=== PATIENT | female | born 2000 | race Caucasian/White ===

== ENCOUNTER 2019-07-06 14:19 | Emergency (ER) | payer OTHER, SELFPAY ==
[2019-07-06 14:37] VITALS: BP 117/55; PULSE 76; RESP 18; TEMP 36.4; O2SAT 100
[2019-07-06 15:52] LABS: Add Urine Microscopic? YES; Appearance Urine Clear (Clear); Bacteria Urine Trace /hpf; Bilirubin Urine Negative (Negative); Blood Urine Negative (Negative); Color Urine Yellow (Yellow); Glucose Urine UA Negative (Negative); Ketones Urine Trace mg/dL (Negative); Leukocyte Esterase Ur Trace LEU/UL (Negative); Mucus Urine Rare /lpf; Nitrate Urine Positive (Negative); Protein Urine Negative (Negative); RBC Urine 0-2 /hpf (0-2); Specific Grav Ur 1.019 (1.001-1.035); Squamous Epithelial Cell Urine Occasional /hpf (Few)
--- NOTE | 2019-07-06 16:09 | ED.FEMALEGU ---
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 Patient is currently [address] Kendrick patient was seen yesterday and had outpatient ultrasound. Patient notes she has had some mild cramping in the which Dr. Vazquez is aware of patient denies any vomiting diarrhea does note she has had some white discharge and states that her sexual partner may have a STD currently which is led her to seek testing patient otherwise on arrival is resting comfortably in the room in no distress <Dieter Alva PA-C - Last Filed: 07/06/19 16:14> Related Data Allergies/Adverse reactions: Allergies Allergy/AdvReac Type Severity Reaction Status Date / Time No Known Allergies Allergy Verified 07/06/19 15:35 <Dieter Alav PA-C - Last Filed: 07/06/19 16:14> Review of Systems Review of Systems: All systems reviewed & are unremarkable except as noted in HPI and below <Dieter Alva PA-C - Last Filed: 07/06/19 16:14> PMFSH Social History Social History: Social History (Updated 07/06/19 @ 16:12 by Dieter Alva PA-C) Smoking status: Never smoker Gender identity (if verbalized by the patient): Female <Dieter Alva PA-C - Last Filed: 07/06/19 16:14> Exam Narrative: Exam Narrative: GENERAL: Well-appearing, well-nourished, and in no acute distress. HEAD: Normocephalic, atraumatic. EYES: PERRLA and EOMI. ENT: Nares clear, no rhinorrhea or epistaxis. Mucous membranes moist. CHEST: Clear to auscultation. No respiratory distress. No wheezes rales or rhonchi HEART: Regular rate and rhythm. No murmur heard. EXTREMITIES: Normal range of motion. No edema. FEMALE GENITOURINARY: White discharge in the vaginal vault SKIN: Warm, dry, no rash. NEURO: No focal deficits. Alert and oriented x3. Cranial nerves II through XII grossly intact PSYCH: Normal mood and affect. <Dieter Alva PA-C - Last Filed: 07/06/19 16:14> Course Course Emergency Course: Patient in the room tested and treated for STDs will follow with gynecology on Tuesday as planned <Dieter Alva PA-C - Last Filed: 07/06/19 16:14> Vital Signs Vital signs: Vital Signs Temperature 36.4 C L 07/06/19 14:37 Pulse Rate 76 07/06/19 14:37 Respiratory Rate 18 07/06/19 14:37 Blood Pressure 117/55 L 07/06/19 14:37 Pulse Oximetry 100 07/06/19 14:37 Temperature 36.4 C L 07/06/19 14:37 Pulse Rate 76 07/06/19 14:37 Respiratory Rate 18 07/06/19 14:37 Blood Pressure 117/55 L 07/06/19 14:37 Pulse Oximetry 100 07/06/19 14:37 <Dieter Alva PA-C - Last Filed: 07/06/19 16:14> Vital Signs Temperature 36.4 C L 07/06/19 14:37 Pulse Rate 76 07/06/19 14:37 Respiratory Rate 18 07/06/19 14:37 Blood Pressure 117/55 L 07/06/19 14:37 Pulse Oximetry 100 07/06/19 14:37 Temperature 36.4 C L 07/06/19 14:37 Pulse Rate 76 07/06/19 14:37 Respiratory Rate 18 07/06/19 14:37 Blood Pressure 117/55 L 07/06/19 14:37 Pulse Oximetry 100 07/06/19 14:37 <Ernesto Smith MD - Last Filed: 09/12/19 04:32> MDM - Female Genitourinary MDM Narrative Medical decision making narrative: Patient in the room in no distress aware of case findings treatment plan and diagnosis agreeing to follow-up as directed or to return if
[2019-07-06] MEDS: metroNIDAZOLE 250 MG TABLET 2000 MG PO (16:25)
[2019-07-06] MEDS: AZITHROMYCIN 250 MG TABLET 1000 MG PO (16:26)
[2019-07-06] MEDS: cefTRIAXone 250 MG VIAL IM (16:27)
[2019-07-06] MEDS: LIDOCAINE HCL 1% LOCAL INJ 20 ML VIAL (16:27)
== END 2019-07-06 16:39 | disposition home or self-care (01) ==
PROVIDERS: Emergency Medicine Emergency Medical Services; Emergency Provider Emergency Medicine
DX: O23.22 Infections of urethra in pregnancy, second trimester (principal); Z3A.23 23 weeks gestation of pregnancy
CPT/HCPCS: 81001; 87070; 87086; 87088; 87491; 87591; 87808; 96372; 99284; A9270; J0696

== ENCOUNTER 2019-10-16 12:40 | Inpatient (IN) | payer OTHER, SELFPAY ==
[2019-10-16] VITALS (99 sets, daily range): BP systolic 84–138; BP diastolic 55–102; PULSE 68–139; TEMP 36.6–37.2; O2SAT 98–100; BMI 25.1
[2019-10-16 13:28] LABS: Basophils Absolute Auto 0.1 K/mm3 (0.0-0.1); Basophils Percent Auto 0.4 % (0.2-1.2); Eosinophils Percent Auto 0.3 % (0-4.4); Hematocrit 32.2 % (37.0-47.0); Hemoglobin 10.4 g/dL (12.0-15.0); Immature Granulocyte Absolute 0.15 K/mm3 (0.00-0.031); Lymphocytes Absolute Auto 1.43 K/mm3 (0.9-3.2); Lymphocytes Percent Auto 9.8 % (18.3-44.2); Mean Corpuscular HGB Conc 32.3 g/dl (32-36); Mean Corpuscular Hemoglobin 23.6 pg (26-34); Mean Corpuscular Volume 73.2 fl (80-100); Mean Platelet Volume 11.6 fl (7.4-10.4); Monocytes Absolute Auto 0.8 K/mm3 (0.1-0.6); Monocytes Percent Auto 5.5 % (2.6-8.5); Neutrophils Absolute Auto 12.1 K/mm3 (1.3-6.7); Platelet Count Result 238 k/mm3 (150-375); White Blood Count 14.6 K/mm3 (4.5-10.0)
[2019-10-16] MEDS: LACTATED RINGERS 1,000 ML 125 ML IV CONT ×3 (13:28→21:40)
[2019-10-16] MEDS: AMPICILLIN 2 GM/NS 100 ML 2 GM/100 ML BAG IVPB (13:29)
[2019-10-16] MEDS: OXYTOCIN 30 UNITS/NS 500 ML 30 UNITS/500 ML BAG IV CONT (13:29)
--- NOTE | 2019-10-16 13:34 | LDADM ---
This patient, Topher Stapleton, was admitted to Labor/Delivery/Recovery 105 on 10/16/19 at 12:40. Plans for labor, pain management and were discussed with patient. Patient/family oriented to hospital policies and general routines including ID bracelet, bed and alarms, visiting hours, pain management, procedures, bathroom and other care routines, personal items, smoking policy, room service/diet and guest tray routines, infant security routines, and visiting hours. Patient/Family are encouraged to report perceived risks to care and to ask questions if they do not understand what they are told or what they should do. See OBIX for further documentation.
[2019-10-16 15:17] LABS: HIV 1/2 Ab P24 Ag Result Negative (Negative)
--- NOTE | 2019-10-16 16:56 | WPDANESEPP ---
Anes - Eval Pre Procedure Procedure: labor epidural Date/Time: 10/16/19 16:56 Surgeon: Aroldo Preop Diagnosis: Labor pain Pre Op Diagnosis: leaking Patient Data Age: 19 Gender: F Height: 1.65 m Weight: 68.5 kg Last Vital Signs Temp 36.8 C 10/16/19 15:00 Pulse 88 10/16/19 16:31 BP 122/74 10/16/19 16:31 Allergies Allergy/AdvReac Type Severity Reaction Status Date / Time No Known Allergies Allergy Verified 07/06/19 15:35 Home Medications Medication Instructions Recorded Confirmed Type PNV cmb#95-ferrous fumarate-FA 1 tablet PO DAILY 10/01/19 10/01/19 History [] Laboratory Tests 10/16/19 10/16/19 10/16/19 13:19 13:19 13:19 WBC 14.6 K/mm3 H K/mm3 (4.5-10.0) RBC 4.40 M/mm3 M/mm3 (4.2-5.4) Hgb 10.4 g/dL L g/dL (12.0-15.0) Hct 32.2 % L % (37.0-47.0) MCV 73.2 fl L fl (80-100) MCH 23.6 pg L pg (26-34) MCHC 32.3 g/dl g/dl (32-36) RDW 15.0 % H % (11.5-14.5) Plt Count 238 k/mm3 k/mm3 (150-375) MPV 11.6 fl H fl (7.4-10.4) Immature Gran % (Auto) 1.0 % H % (0-0.5) Neut % (Auto) 83.0 % H % (45.5-73.1) Lymph % (Auto) 9.8 % L % (18.3-44.2) [place] % (Auto) 5.5 % % (2.6-8.5) Eos % (Auto) 0.3 % % (0-4.4) Baso % (Auto) 0.4 % % (0.2-1.2) Lymph # (Auto) 1.43 K/mm3 K/mm3 (0.9-3.2) [place] # (Auto) 0.8 K/mm3 H K/mm3 (0.1-0.6) Eos # (Auto) 0.0 K/mm3 K/mm3 (0-0.3) Baso # (Auto) 0.1 K/mm3 K/mm3 (0.0-0.1) Abs Immat Gran (auto) 0.15 K/mm3 H K/mm3 (0.00-0.031) Absolute Neuts (auto) 12.1 K/mm3 H K/mm3 (1.3-6.7) Absolute Nucleated RBC 0.0 K/mm3 K/mm3 (0.0-0.012) Nucleated RBC % 0.0 % % (0.0-0.2) RPR Pending HIV 1&2 Ab/P24 Ag 4thGn Blood Type O Positive Antibody Screen Negative 10/16/19 14:16 WBC RBC Hgb Hct MCV MCH MCHC RDW Plt Count MPV Immature Gran % (Auto) Neut % (Auto) Lymph % (Auto) Sebastian % (Auto) Eos % (Auto) Baso % (Auto) Lymph # (Auto) Sebastian # (Auto) Eos # (Auto) Baso # (Auto) Abs Immat Gran (auto) Absolute Neuts (auto) Absolute Nucleated RBC Nucleated RBC % RPR HIV 1&2 Ab/P24 Ag 4thGn Negative (Negative) Blood Type Antibody Screen Patient hx anesthesia problems: none Family hx anesthesia problems: none [facility] Family History Family History (Updated 10/01/19 @ 15:43 by Yael Woodward RN) Mother Hypertension Thyroid disease Sibling Thyroid disease Social History Social History (Updated 07/06/19 @ 16:12 by Dieter Alva PA-C) Smoking status: Never smoker Second hand tobacco smoke exposure: No Substance use: never Gender identity (if verbalized by the patient): Female Spiritual care concerns: No Exam Day of Procedure 10/16/19 16:56 Patient weight: normal
[2019-10-16] MEDS: AMPICILLIN 1 GM/NS 50 ML 1 GM/50 ML BAG IVPB ×2 (17:33→21:06)
[2019-10-16] MEDS: SODIUM CHLORIDE 0.9% IV 300 ML 600 ML I-UTERINE (21:03)
[2019-10-16] MEDS: ONDANSETRON INJ 4 MG/2 ML VIAL IV PUSH (21:49)
--- NOTE | 2019-10-16 22:23 | P.HPUP_ITS ---
History and Physical Update Update Date/Time: 10/16/19 22:23 This patient is a 19 y/o multip at 37 weeks who pre sented for SROM. She has been ROM for more than 12 hours. History and Physical has been reviewed, including an updated exam of the patient. There are NO changes in the patient's condition. Risks, benefits, and alternatives have been discussed and questions answered. Patient agrees to proceed with procedure.
--- NOTE | 2019-10-16 22:27 | PM.OBPRVD ---
OB - Delivery Note Procedure Delivery date: 10/16/19 events: Prolonged Rupture of Membrane Intrapartal events: None Delivery augmentation: pitocin Delivery monitor: external FHT and internal uterine Route of delivery: Episiotomy description: None Laceration description: None Specimen: Yes Estimated blood loss (mL): 110 Anesthesia type: Epidural Disposition: floor Baby Date of : 10/16/19 Time of : 22:13 Weeks of gestation at delivery: 37 Weight (pounds): 5 Weight (ounces): 6 presentation: vertex position: Left Occiput Anterior Placenta delivery description: Spontaneous cord vessel description: 3 Vessels score one minute: 7 score five minutes: 8
[2019-10-16] MEDS: OXYTOCIN 30 UNITS/NS 500 ML 30 UNITS/500 ML BAG 125 UNITS IV CONT (22:55)
[2019-10-16] MEDS: WITCH HAZEL 40 PADS 1 PAD TOPICAL (23:51)
[2019-10-16] MEDS: BENZOCAINE 20% AER SPR (*SP) 56 GM CAN 1 SPRAY TOPICAL (23:51)
[2019-10-17 00:38] VITALS: BP 118/86; PULSE 69; RESP 16; TEMP 36.8; O2SAT 100
--- NOTE | 2019-10-17 00:38 | PC.NURSE ---
Patient was given the opportunity to view the discharge video Mother & Baby Care, The First Two Weeks and to ask questions. Patient declined viewing the video and has been given the mother/baby guide for home reference. Patient watched video 16 months ago with her last delivery.
--- NOTE | 2019-10-17 00:38 | OBPPTRN ---
Patient transferred to post room #287 via wheelchair. Support person present. Oriented to unit, room, information board, rooming in, admission packet and security measures. Patient verbalizes understanding. in level II nursery.
[2019-10-17 05:37] LABS: Hematocrit 29.2 % (37.0-47.0); Hemoglobin 9.4 g/dL (12.0-15.0)
[2019-10-17] MEDS: IBUPROFEN 600 MG TABLET PO ×2 (07:23→17:34)
[2019-10-17] MEDS: MULTIVIT/MIN/PREN/FOL AC/IRON TABLET 1 TAB PO (07:24)
[2019-10-17] MEDS: POLYSACCHARIDE IRON COMPLEX 150 MG CAPSULE PO ×2 (07:24→17:34)
[2019-10-17] MEDS: DOCUSATE SODIUM 100 MG CAPSULE PO ×2 (07:24→17:34)
[2019-10-17 07:30] VITALS: BP 103/65; PULSE 66; RESP 20; TEMP 37.3; O2SAT 100
[2019-10-17 07:36] LABS: Rapid Plasma Reagin Non-Reactive (NonReactive)
--- NOTE | 2019-10-17 08:05 | PM.OBPNVD ---
OB - PN: Subj Subjective Date/time seen: 10/17/19 08:05 OB - PN: Obj Data Labs CBC & Chem 7: 10/17/19 05:14 Labs: Laboratory Results - last 24 hr 10/16/19 10/16/19 10/16/19 13:19 13:19 13:19 WBC 14.6 H RBC 4.40 Hgb 10.4 L Hct 32.2 L MCV 73.2 L MCH 23.6 L MCHC 32.3 RDW 15.0 H Plt Count 238 MPV 11.6 H Immature Gran % (Auto) 1.0 H Neut % (Auto) 83.0 H Lymph % (Auto) 9.8 L [place] % (Auto) 5.5 Eos % (Auto) 0.3 Baso % (Auto) 0.4 Lymph # (Auto) 1.43 [place] # (Auto) 0.8 H Eos # (Auto) 0.0 Baso # (Auto) 0.1 Abs Immat Gran (auto) 0.15 H Absolute Neuts (auto) 12.1 H Absolute Nucleated RBC 0.0 Nucleated RBC % 0.0 RPR Non-reactive HIV 1&2 Ab/P24 Ag 4thGn Blood Type O Positive Antibody Screen Negative 10/16/19 10/17/19 14:16 05:14 WBC RBC Hgb 9.4 L Hct 29.2 L MCV MCH MCHC RDW Plt Count MPV Immature Gran % (Auto) Neut % (Auto) Lymph % (Auto) [place] % (Auto) Eos % (Auto) Baso % (Auto) Lymph # (Auto) [place] # (Auto) Eos # (Auto) Baso # (Auto) Abs Immat Gran (auto) Absolute Neuts (auto) Absolute Nucleated RBC Nucleated RBC % RPR HIV 1&2 Ab/P24 Ag 4thGn Negative Blood Type Antibody Screen OB - PN A/P Plan day: 1 Plan: routine care Time Spent With Patient Time: Total time spent is greater than 50% in coordination of care (as documented) at patient's floor/unit and/or counseling patient: Time with patient: less than 15 minutes Review of Systems Review of Systems: All systems reviewed & are unremarkable except as noted in HPI and below Exam Narrative: Exam Narrative: FUndus firm and vaginal flow controlled. Const: General: cooperative and healthy appearing Orientation/consciousness: oriented to person, oriented to place, oriented to time and patient oriented x3 Limitations: no limitations HENMT: Head: normal to inspection Ears: hearing grossly normal bilaterally General nose exam: Normal external nose present Face and sinus: normal facial exam Mouth: Yes Normal oral and palatal mucosa present Teeth and gingiva: dentition normal Throat: posterior oropharynx normal Eyes: General: appearance normal, both eyes and all related structures Neck: Neck: normal visual inspection Thyroid: thyroid normal Chest: Chest palpation & inspection: normal inspection of the chest Resp: Effort & Inspection: normal respiratory effort Auscultation: clear to auscultation bilaterally Cardio: Rate: regular rate Rhythm: regular rhythm GI: Inspection: normal to inspection : General: Yes bimanual renal exam normal bilaterally Skin: General skin exam: normal color and no rashes or lesions noted Neuro: General: oriented to person, oriented to place, oriented to time and patient oriented x3 Extrem: General: normal to inspection Psych: Mental Status: mental status grossly normal
--- NOTE | 2019-10-17 16:04 | PC.NURSE ---
Self care discharge instructions given including follow up instructions. Pt. verbalized understanding. No questions or concerns voiced.
[2019-10-17] MEDS: WITCH HAZEL 40 PADS 1 PAD TOPICAL (17:34)
[2019-10-17] MEDS: BENZOCAINE 20% AER SPR (*SP) 56 GM CAN 1 SPRAY TOPICAL (17:34)
--- NOTE | 2019-11-12 20:52 | PM.OBDSVD ---
DS: Admitting Diagnosis Admitting Diagnosis Admitting Diagnosis: Encounter for supervision of normal , unspecified, third trimester DS: Discharge Diagnosis Discharge Diagnosis (1) Term delivered: Code(s): O80 - Encounter for full-term uncomplicated delivery Status: Acute OB - DS: Summary OB Procedures : None OB Procedures Intrapartum: Spontaneous Vag Delivery OB Procedures: : None Peripartum Data Delivery Method: Natural Vaginal Time Spent with Patient Time attestation: Total time spent providing and/or coordinating discharge services: DS: Data Data Completed and Pending Completed studies during hospitalization: Pending at discharge 10/16/19 22:46 Surgical [PTH] Routine Discharge Plan Discharge Attending physician on discharge: Jennifer Kendrick Consulting providers: Destin Meng ; Theodore Alejandro ; Indu Tamez Discharging Clinician: Jennifer Kendrick Anticipated Discharge Date/Time: 10/17/19 16:30 Patient Disposition: Home, Self-Care Activity: may shower and pelvic rest Diet: heart healthy Discharge Instructions: Education: Mom and Baby Guide Given to: Mother Follow-Up: Call your delivering provider's office for an appointment to be seen in: 4 Weeks Mom and baby should come to the [facility] for the follow-up appointment. Appointment Date/Time: Saturday, October 19, 2019 at 11:00 am What to expect at your follow-up visit: Blood Pressure Check Physical Assessment Call [phone] if you are unable to keep your appointment time. BREAST CARE: 1. Wear a snug supportive bra. 2. For engorgement discomfort: Breast Feeding: A. Apply warm moist washcloths B. Express milk as needed to relieve engorgement C. Wear loose clothing 3. For sore nipples: A. Identify correct latch-on B. Apply warm moist washcloths before and after nursing C. Air dry nipples after nursing D. May apply Lansinoh cream to nipples EPISIOTOMY/PERINEAL CARE 1. Until bleeding stops, use your nahomy bottle after urinating 2. Change your pad frequently throughout the day 3. You may take sitz baths several times a day (fill your bathtub with warm water and soak for 20 minutes.) Do NOT bathe in the water 4. No tub baths until seen by your physician - You may shower ACTIVITY: 1. Rest as much as possible. 2. Do not exercise or lift anything heavier than your baby (such as laundry or other children.) 3. Avoid stairs or driving as much as possible. 4. Do not put anything into the vagina. No douching, tampons, or sexual activity until seen by physician. NOTIFY PHYSICIAN IF YOU HAVE ANY QUESTIONS OR IF ANY OF THE FOLLOWING SYMPTOMS OCCUR: 1. If your episiotomy or incision becomes red, swollen, or more painful than what you have experienced in the hospital. 2. If your vaginal bleeding becomes foul smelling. 3. If your vaginal bleeding becomes more heavy than a period or if your bleeding changes from pink to bright red. However, you may pass an occasional walnut-sized clot once or twice for the first week . 4. If you experience a sharp, shooting pain in you calves. 5. If you discover a hard, reddened area on your breast or if you experience flu-like symptoms. DIET: 1. Eat regular, well-balanced meals. 2. Drink plenty of fluids daily. If , drink to thirst. Patient Instructions: Antibiotic Form Stand Alone Forms: General Discharge Information Follow-up/Referrals: Jennifer Kendrick MD [Physician] - 4 Weeks Discharge Medications: Continued PNV cmb#95-ferrous fumarate-FA [] 28 mg iron- 800 mcg Tablet 1 tablet PO DAILY RF: 0 Date of admission: 10/16/19 12:40 Primary Care Provider: PHYSICIAN,CHANGE MANAGEMENT ADMINISTRATOR Admitting Provider: Jennifer Kendrick Discharge Date/Time: 10/17/19 17:46 Attending physician on admission: Jennifer Kendrick
== END 2019-10-17 17:46 | disposition home or self-care (01) | DRG 560 ==
LOC: ANHLDR 13:02 → ANHOB2 10-17 00:45
PROVIDERS: Admitting Provider Obstetrics & Gynecology; Visit Provider Obstetrics & Gynecology
DX: O42.92 Full-term premature rupture of membranes, unspecified as to length of time between rupture and onset of labor (principal); Z37.0 Single live birth; Z3A.37 37 weeks gestation of pregnancy; O36.8330 Maternal care for abnormalities of the fetal heart rate or rhythm, third trimester, not applicable or unspecified
CPT/HCPCS: 36415; 84112; 85014; 85018; 85025; 86592; 86703; 86850; 86900; 86901; 88307; A9270; G0432; J0290; J2405; J2590; J2795; J3010; J7030; J7120

== ENCOUNTER 2021-02-20 14:50 | Outpatient (CLI) | payer OTHER, SELFPAY | END 2021-02-20 15:40 | disposition home or self-care (01) | LOC: ANHOBOP 15:37 → ANHLDR 15:37 | PROVIDERS: Visit Provider Obstetrics & Gynecology | DX: O41.8X90 Other specified disorders of amniotic fluid and membranes, unspecified trimester, not applicable or unspecified (principal) | CPT/HCPCS: 59025; 84112; 99199 ==

== ENCOUNTER 2021-03-04 13:49 | Outpatient (RCR) | payer OTHER, SELFPAY ==
--- NOTE | ~2021-03-04 | US_ITS ---
EXAMINATION: US OB limited w BPP DATE: 03/04/2021 15:33 INDICATION: Decreased movement, third trimester TECHNIQUE: Real-time pelvic ultrasound was performed. The interpreting radiologist was not present fo r the study. COMPARISON: None. FINDINGS: There is a single living fetus in vertex presentation. The placenta is on the left. heart rate is 165 beats per minute (bpm). The amniotic fluid index is 13.3 cm which is normal. Biophysical profile performed by the technologist: breathing (30 sec sustained breathing in 30 minutes): 2 out of 2 movement (3 gross body movements in 30 minutes): 2 out of 2 tone (one episode of cmurmmy-bmrpxetbm-jtjjadq limb movement): 2 out of 2 Amniotic fluid pocket (2 cm): 2 out of 2 Total score: 8 out of 8 IMPRESSION: 1. Single living fetus in vertex presentation. 2. Biophysical profile 8 out of 8. 3. Normal amniotic fluid index. Reviewed, dictated and finalized at location A.
[2021-03-04 15:40] VITALS: BP 113/74; PULSE 78
== END 2021-03-30 09:42 | disposition home or self-care (01) ==
LOC: ANHOBOP 13:49
PROVIDERS: Visit Provider Obstetrics & Gynecology
DX: O36.8130 Decreased fetal movements, third trimester, not applicable or unspecified (principal); Z3A.37 37 weeks gestation of pregnancy
CPT/HCPCS: 59025; 76815; 76819

== ENCOUNTER 2021-03-13 03:23 | Inpatient (IN) | payer OTHER, SELFPAY ==
[2021-03-13] VITALS (155 sets, daily range): BP systolic 64–140; BP diastolic 31–103; PULSE 75–172; RESP 16; TEMP 36.4–36.8; O2SAT 92–100; BMI 22.6
--- OUTSIDE RECORDS SUMMARY | 2021-03-13 03:32 | XMS_ITS | Encounter Summary ---
:2000 Author Reason for Visit None recorded. Assessment and Plan 1. History of growth retar dation ? non-stress test Discussion Note: None recorded.Patient educational handouts: No information available. Plan of Care Reminders Provider Appointments Ob Routine Bert lfo Josr 03/16/2021 MD Aroldo 3:00PM ? Induction Vasile Josr 03/16/2021 MD Aroldo 6:00AM ? Ob Routine Donaldolf o Josr 03/23/2021 MD Aroldo 3:00PM Lab None ? ? recorded. Referral None ? ? recorded. Procedures None ? ? recorded. Surgeries None ? ? recorded. Imaging Non-stress [place] Test 03/09/2021 Medications Name Start Date ? ? fluconazole 150 mg tablet ? Take 1 tablet by oral route. Macrobid 100 mg capsule ? Take 1 capsule every 12 hours by oral route for 7 day s. + DHA ? Medications Administered None recorded. Vitals None recorded. Results Lab Results None recorded. Allergies Code Code System Name Reaction Severity Onset
--- OUTSIDE RECORDS SUMMARY | 2021-03-13 03:32 | XMS_ITS ---
:2000 Author Care Team Providers Name Role Phone AroldoDonaldVasilemalcolm Ovalles Primary Care Provider Unavailable Allergies Code Code System Name Reaction Severity Status Onset NKDA ? Medications Name Status Start Date Stop Date ? ? amoxicillin 875 mg tablet Completed ? 2019 fluconazole 150 mg tablet Active ? Not av ailable Macrobid 100 mg capsule Active ? Not avai lable Take 1 capsule every 12 hours by oral route for 7 days. + DHA Active ? Not available Prenate DHA 28 mg iron-1 mg-300 mg capsule Completed ? 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 Rubella Screening Status Unknown 12/12/2017 History Gestation Period, 11 Weeks Unknown 12/12/2017 Histo ry , Childbirth and Puerperium Unknown 12/12/2017 History Finding , Childbirth and Puerperium Unknown 01/06/2018 History Finding Screening Unknown 03/13/2018 History Normal in Multigravida Unknown 03/13/2018 History Gestation Period, 33 Weeks Unknown 05/18/2018 Histo ry Clinical Finding Unknown 05/18/2018 History -induced Edema and Unknown 06/01/2018 Hist ory Proteinuria without Hypertension Gestation Period, 35 Weeks Unknown 06/01/2018 Histo ry Gestation Period, 36 Weeks Unknown 06/09/2018 Histo ry Gestation Period, 37 Weeks Unknown 06/16/2018
--- OUTSIDE RECORDS SUMMARY | 2021-03-13 03:32 | XMS_ITS | Encounter Summary ---
:2000 Author Reason for Visit None recorded. Assessment and Plan 1. condition affecting obs tetrical care of mother ? US, obstetric, biophysical profile + non-stress test Discussion Note: None recorded.Patient educational handouts: No information available. Plan of Care Reminders Provider Appointments Ob Routine Bert lfo Josr 03/16/2021 MD Aroldo 3:00PM ? Induction Vasile Josr 03/16/2021 MD Aroldo 6:00AM ? Ob Routine Rodolf o Josr 03/23/2021 MD Aroldo 3:00PM Lab None recorded. ? ? Referral None recorded. ? ? Procedures None recorded. ? ? Surgeries None recorded. ? ? Imaging US, Obstetric, [facility] Biophysical Profile + 03/02/2021 Non-stress Test Medications Name Start Date ? ? fluconazole 150 mg tablet ? Take 1 tablet by oral route. Macrobid 100 mg capsule ? Take 1 capsule every 12 hours by oral route for 7 day s. + DHA ? Medications Administered None recorded. Vitals None recorded. Results Lab Results None recorded. Allergies Code Code System Name
--- OUTSIDE RECORDS SUMMARY | 2021-03-13 03:32 | XMS_ITS | Encounter Summary ---
:2000 Author Reason for Visit OB visit Assessment and Plan Assessment Note Patient is ___weeks . Discu ssed plan. 1. Routine care Discussion Note: None recorded.Patient educational handouts: No information available. Plan of Care Reminders Provider Appointments Ob Routine Bert lfo Josr 03/16/2021 MD Aroldo 3:00PM ? Induction Vasile Josr 03/16/2021 MD Aroldo 6:00AM ? Ob Routine Noemy Ovalles 03/23/2021 MD Aroldo 3:00PM Lab None ? ? recorded. Referral None ? ? recorded. Procedures None ? ? recorded. Surgeries None ? ? recorded. Imaging None ? ? recorded. Medications Name Start Date ? ? fluconazole 150 mg tablet ? Take 1 tablet by oral route. Macrobid 100 mg capsule ? Take 1 capsule every 12 hours by oral route for 7 day s. + DHA ? Medications Administered None recorded. Vitals Height Weight BMI Blood Pressure 5 ft 6 in 140 lbs 22.6 kg/m2 130/83 mm[Hg] Results Lab Results None recorded. All
--- OUTSIDE RECORDS SUMMARY | 2021-03-13 03:32 | XMS_ITS | Encounter Summary ---
:2000 Author Reason for Visit None recorded. Assessment and Plan 1. Anemia during - bab y not yet delivered ? US, obstetric, biophysical profile + non-stress [...] None recorded. ? ? Imaging US, Obstetric, [facility] Biophysical Profile + 03/09/2021 Non-stress Test Medications Name Start Date ? [...]
--- OUTSIDE RECORDS SUMMARY | 2021-03-13 03:32 | XMS_ITS | Encounter Summary ---
[...] ft 6 in 140 lbs 22.6 kg/m2 125/81 mm[Hg] Results Lab Results None recorded. All
--- OUTSIDE RECORDS SUMMARY | 2021-03-13 03:33 | XMS_ITS | Encounter Summary ---
:2000 Author Reason for Visit OB visit Assessment and Plan Assessment Note Patient is ___weeks . Discu ssed plan. 1. Routine care Discussion Note: None recorded.Patient educational handouts: No information available. Plan of Care Reminders Provider Appointments Ob Routine Ebrt lfo Josr 03/16/2021 MD Aroldo 3:00PM ? [...] BMI Blood Pressure 5 ft 6 in 141 lbs 22.8 kg/m2 125/72 mm[Hg] Results Lab Results None recorded. Ye
--- OUTSIDE RECORDS SUMMARY | 2021-03-13 03:33 | XMS_ITS | Encounter Summary ---
[...] ? recorded. Imaging Non-stress [place] Test 03/02/2021 Medications Name Start Date ? ? fluconazole [...]
--- OUTSIDE RECORDS SUMMARY | 2021-03-13 03:33 | XMS_ITS | Encounter Summary ---
[...] ft 6 in 141 lbs 22.8 kg/m2 118/73 mm[Hg] Results Lab Results None recorded. All
--- OUTSIDE RECORDS SUMMARY | 2021-03-13 03:33 | XMS_ITS | Encounter Summary ---
:2000 Author Reason for Visit None recorded. Assessment and Plan 1. Anemia of ? US, obstetric, biophysical profile + non-stress [...] None recorded. ? ? Imaging US, Obstetric, [facility] Biophysical Profile + 02/23/2021 Non-stress Test Medications Name Start Date ? [...]
--- OUTSIDE RECORDS SUMMARY | 2021-03-13 03:33 | XMS_ITS | Encounter Summary ---
:2000 Author Reason for Visit None recorded. Assessment and Plan 1. Medical examination for suspe cted condition ? US, obstetric, follow-up Discussion Note: None recorded.Patient educational handouts: No information available. Plan of Care Reminders Provider Appointments Ob Routine Bert lfo Josr 03/16/2021 MD Aroldo 3:00PM ? Induction Vasile Josr 03/16/2021 MD Aroldo 6:00AM ? Ob Routine Donaldolf o Josr 03/23/2021 MD Aroldo 3:00PM Lab None ? ? recorded. Referral None ? ? recorded. Procedures None ? ? recorded. Surgeries None ? ? recorded. Imaging , [place] [facility]st[facility], Follow-up 01/27/2021 Medications Name Start Date ? ? fluconazole [...]
--- OUTSIDE RECORDS SUMMARY | 2021-03-13 03:33 | XMS_ITS | Encounter Summary ---
[...] ? recorded. Imaging Non-stress [place] Test 02/02/2021 Medications Name Start Date ? ? fluconazole [...]
--- OUTSIDE RECORDS SUMMARY | 2021-03-13 03:33 | XMS_ITS | Encounter Summary ---
[...] ? recorded. Imaging Non-stress [place] Test 02/23/2021 Medications Name Start Date ? ? fluconazole [...]
--- OUTSIDE RECORDS SUMMARY | 2021-03-13 03:33 | XMS_ITS | Encounter Summary ---
:2000 Author Reason for Visit OB visit Assessment and Plan 1. Routine care ? drug screen, urine 2. Anemia of 3. History of growth retar dation 4. Marijuana user 5. Noncompliance with treatment Discussion Note: None recorded.Patient educational handouts: No information available. Plan of Care Reminders Provider Appointments Ob Routine Bert lfo Josr 03/16/2021 MD [place] 3:00PM ? Induction Vasile Ovalles 03/16/2021 MD [place] 6:00AM ? Ob Routine Rodolf o Josr 03/23/2021 MD [place] 3:00PM Lab Drug Screen, Francesca pablo Urine 02/09/2021 Referral None ? ? recorded. Procedures None [...]
--- OUTSIDE RECORDS SUMMARY | 2021-03-13 03:33 | XMS_ITS | Encounter Summary ---
[...] None recorded. ? ? Imaging US, Obstetric, [facility] Biophysical Profile + 02/16/2021 Non-stress Test Medications Name Start Date ? [...]
--- OUTSIDE RECORDS SUMMARY | 2021-03-13 03:33 | XMS_ITS | Encounter Summary ---
[...] BMI Blood Pressure 5 ft 6 in 146 lbs 23.6 kg/m2 115/77 mm[Hg] Results Lab Results None recorded. Al
--- OUTSIDE RECORDS SUMMARY | 2021-03-13 03:33 | XMS_ITS | Encounter Summary ---
:2000 Author Reason for Visit None recorded. Assessment and Plan 1. History of previous baby with growth restriction ? non-stress test Discussion Note: None recorded.Patient [...] ? recorded. Imaging Non-stress [place] Test 02/09/2021 Medications Name Start Date ? ? fluconazole [...]
--- OUTSIDE RECORDS SUMMARY | 2021-03-13 03:33 | XMS_ITS | Encounter Summary ---
:2000 Author Reason for Visit None recorded. Assessment and Plan None recorded.Discussion Note: None recorded.Patient educational handouts: No information available. Plan of Care Reminders Provider Appointments Ob Routine Bert lfo Josr 03/16/2021 MD [place] 3:00PM ? Induction Vasile Josr 03/16/2021 MD [place] 6:00AM ? Ob Routine Kleverf sharon Ovalles 03/23/2021 MD [place] 3:00PM Lab None [...] Code Code System Name Reaction Severity Onset NKDA ? ? ? Problems Name Status Onset Date Source ?
--- OUTSIDE RECORDS SUMMARY | 2021-03-13 03:33 | XMS_ITS | Encounter Summary ---
[...] ? recorded. Imaging Non-stress [place] Test 02/16/2021 Medications Name Start Date ? ? fluconazole [...]
--- OUTSIDE RECORDS SUMMARY | 2021-03-13 03:34 | XMS_ITS | Encounter Summary ---
:2000 Author Reason for Visit OB visit 30w4d Assessment and Plan 1. Routine care Discussion Note: None recorded.Patient [...] BMI Blood Pressure 5 ft 6 in 142 lbs 22.9 kg/m2 120/77 mm[Hg] Results Lab Results None recorded. Allergies Code Code System Name Reaction Severity Onset
[2021-03-13] MEDS: AMPICILLIN 2 GM/NS 100 ML 2 GM/100 ML BAG IVPB (04:06)
[2021-03-13] MEDS: LACTATED RINGERS 1,000 ML 125 ML IV CONT ×3 (04:07→13:32)
[2021-03-13 04:23] LABS: Basophils Percent Auto 0.3 % (0.2-1.2); Eosinophils Absolute Auto 0.1 K/mm3 (0-0.3); Eosinophils Percent Auto 0.4 % (0-4.4); Hematocrit 28.3 % (37.0-47.0); Hemoglobin 9.1 g/dL (12.0-15.0); Immature Granulocyte Absolute 0.18 K/mm3 (0.00-0.031); Immature Granulocyte Percent A 1.6 % (0-0.5); Lymphocytes Absolute Auto 1.19 K/mm3 (0.9-3.2); Lymphocytes Percent Auto 10.4 % (18.3-44.2); Mean Corpuscular HGB Conc 32.2 g/dl (32-36); Mean Corpuscular Hemoglobin 23.9 pg (26-34); Mean Corpuscular Volume 74.5 fl (80-100); Mean Platelet Volume 10.5 fl (7.4-10.4); Monocytes Absolute Auto 1.1 K/mm3 (0.1-0.6); Monocytes Percent Auto 9.1 % (2.6-8.5); Neutrophils Percent Auto 78.2 % (45.5-73.1); Nucleated Red Blood Cells Perc 0.2 % (0.0-0.2); Platelet Count Result 329 k/mm3 (150-375); Red Cell Distribution Width 13.9 % (11.5-14.5); White Blood Count 11.5 K/mm3 (4.5-10.0)
--- NOTE | 2021-03-13 05:12 | P.PNAN_ITS ---
Anes - Eval Pre Procedure Procedure: labor epidrual Date/Time: 03/13/21 05:12 Surgeon: jeanine Preop Diagnosis: pain during labor Pre Op Diagnosis: Leaking Patient Data Age: 20 Gender: F Height: 1.68 m Weight: 63.5 kg Last Vital Signs Pulse 89 03/13/21 04:00 BP 125/79 03/13/21 04:00 Allergies Allergy/AdvReac Type Severity Reaction Status Date / Time No Known Allergies Allergy Verified 03/09/21 12:17 Home Medications Medication Instructions Recorded Confirmed Type PNV cmb#95-ferrous fumarate-FA 1 tablet PO DAILY 10/01/19 03/09/21 History [] ferrous sulfate [Iron (ferrous 325 mg PO BID 02/20/21 03/09/21 History sulfate)] Laboratory Tests 03/13/21 03/13/21 04:04 04:04 WBC 11.5 K/mm3 H K/mm3 (4.5-10.0) RBC 3.80 M/mm3 L M/mm3 (4.2-5.4) Hgb 9.1 g/dL L g/dL (12.0-15.0) Hct 28.3 % L % (37.0-47.0) MCV 74.5 fl L fl (80-100) MCH 23.9 pg L pg (26-34) MCHC 32.2 g/dl g/dl (32-36) RDW 13.9 % % (11.5-14.5) Plt Count 329 k/mm3 k/mm3 (150-375) MPV 10.5 fl H fl (7.4-10.4) Immature Gran % (Auto) 1.6 % H % (0-0.5) Neut % (Auto) 78.2 % H % (45.5-73.1) Lymph % (Auto) 10.4 % L % (18.3-44.2) Imperial % (Auto) 9.1 % H % (2.6-8.5) Eos % (Auto) 0.4 % % (0-4.4) Baso % (Auto) 0.3 % % (0.2-1.2) Lymph # (Auto) 1.19 K/mm3 K/mm3 (0.9-3.2) Imperial # (Auto) 1.1 K/mm3 H K/mm3 (0.1-0.6) Eos # (Auto) 0.1 K/mm3 K/mm3 (0-0.3) Baso # (Auto) 0.0 K/mm3 K/mm3 (0.0-0.1) Abs Immat Gran (auto) 0.18 K/mm3 H K/mm3 (0.00-0.031) Absolute Neuts (auto) 9.0 K/mm3 H K/mm3 (1.3-6.7) Absolute Nucleated RBC 0.0 K/mm3 K/mm3 (0.0-0.012) Nucleated RBC % 0.2 % % (0.0-0.2) RPR Pending Patient hx anesthesia problems: none Family hx anesthesia problems: none Results Review: All pre-operative results and documents have been reviewed as part of the pre-operative evaluation. [facility] Family History Family History Mother Hypertension Thyroid disease Sibling Thyroid disease Social History Social History (Updated 07/06/19 @ 16:12 by Dieter Alva PA-C) Smoking status: Never smoker Second hand tobacco smoke exposure: No Substance use: never Gender identity (if verbalized by the patient): Female Spiritual care concerns: No Exam Day of Procedure 03/13/21 05:12
[2021-03-13 05:45] LABS: Amphetamine Screen Urine Negative (Negative); Barbiturate Screen Urine Negative (Negative); Benzodiazepines Screen Urine Negative (Negative); Cannabinoid Screen Urine Positive (Negative); Cocaine Screen Urine Negative (Negative); Methadone Screen Urine Negative (Negative); Opiate Screen Urine Negative (Negative); Phencyclidine Screen Urine Negative (Negative)
--- NOTE | 2021-03-13 07:34 | WPDOBADMIT ---
Obstetrics - Admit Note Admission Note: record reviewed. No pertinent additions to the history and/or any subsequent changes in the physical findings that are not consistent with the expected course of the were found. Arrived in labor, SROM, clear fluid, anticipate vaginal delivery Additions to the history and/or subsequent changes in the physical findings follow. None.
[2021-03-13] MEDS: AMPICILLIN 1 GM/NS 50 ML 1 GM/50 ML BAG IVPB ×4 (07:51→20:00)
[2021-03-13] MEDS: OXYTOCIN 30 UNITS/NS 500 ML 30 UNITS/500 ML BAG IV CONT (07:52)
[2021-03-13] MEDS: miSOPROStol 200 MCG TABLET 800 MCG (20:28)
--- NOTE | 2021-03-13 20:34 | PM.OBPRVD ---
OB - Delivery Note Procedure Delivery date: 03/13/21 Procedure: vaginal delivery Intrapartal events: None Induction method: none Delivery augmentation: pitocin Delivery monitor: external FHT, external uterine and internal uterine Route of delivery: Episiotomy description: None Laceration Description: None Specimen: No Quantitative Blood Loss (ml): 225 Anesthesia type: Epidural Disposition: floor Baby Date of : 03/13/21 Time of : 20:21 Weeks of gestation at delivery: 38 Infant gender: Female Weight (pounds): 7 Weight (ounces): 7 position: Left Occiput Anterior Placenta delivery description: Spontaneous cord vessel description: 3 Vessels, Clamped/Cut and Delayed Cord Clamping score one minute: 9 score five minutes: 9 Narrative: mother and baby skin to skin instable condition
[2021-03-13] MEDS: OXYTOCIN 30 UNITS/NS 500 ML 30 UNITS/500 ML BAG 125 UNITS IV CONT (21:03)
[2021-03-13] MEDS: ACETAMINOPHEN 325 MG TABLET 650 MG PO (22:44)
[2021-03-13] MEDS: WITCH HAZEL 40 PADS 1 PAD TOPICAL (22:45)
[2021-03-13] MEDS: BENZOCAINE 20% AER SPR (*SP) 56 GM CAN 1 SPRAY TOPICAL (22:45)
[2021-03-13] MEDS: IBUPROFEN 600 MG TABLET PO (23:20)
[2021-03-14 04:58] LABS: Hematocrit 25.6 % (37.0-47.0); Hemoglobin 8.5 g/dL (12.0-15.0)
[2021-03-14 08:40] VITALS: BP 115/82; PULSE 71; RESP 16; TEMP 36.9
--- NOTE | 2021-03-14 09:20 | PM.OBPNVD ---
OB - PN: Subj Subjective Date/time seen: 03/14/21 09:20 Patient comments: no complaints baby status: doing well OB - PN: Obj Data Labs CBC & Chem 7: 03/14/21 04:18 Labs: Laboratory Results - last 24 hr 03/14/21 04:18 Hgb 8.5 L Hct 25.6 L OB - PN A/P Plan day: 1 Plan: routine care Time Spent With Patient Time: Total time spent is greater than 50% in coordination of care (as documented) at patient's floor/unit and/or counseling patient: Review of Systems Review of Systems: All systems reviewed & are unremarkable except as noted in HPI and below Exam Const: General: cooperative and healthy appearing
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
[2021-03-14 13:00] VITALS: BP 123/81; PULSE 76; RESP 16; TEMP 36.8
--- NOTE | 2021-03-14 13:08 | WPDANLDPN2 ---
Anes-Prog Note L&D Date/Time: 03/14/21 13:08 Comfortable throughout: labor and delivery Neuraxial method: epidural Epidural/Spinal procedure site: clean & non-tender Neuro status: Neuro function grossly intact. Cardiovascular status: normal Respiratory status: normal Airway patency: baseline Mental status: baseline Post-Op hydration status: normal Vital Signs: Last Vital Signs Temp 36.9 C 03/14/21 08:40 Pulse 71 03/14/21 08:40 Resp 16 03/14/21 08:40 BP 115/82 03/14/21 08:40 Pulse Ox 99 03/13/21 19:58 Pain score (VAS): 05/25 I/O: Intake & Output 03/13/21 03/14/21 03/14/21 23:59 07:59 15:59 Intake Total 50 Output Total 138 Balance -88 Post-procedural complaints: none Patient feedback: Patient satisfied with anesthetic care.
[2021-03-14 15:38] LABS: Rapid Plasma Reagin Non-Reactive (NonReactive)
[2021-03-14 17:00] VITALS: BP 113/61; PULSE 70; RESP 18; TEMP 36.7
[2021-03-14] MEDS: MULTIVIT/MIN/PREN/FOL AC/IRON TABLET 1 TAB PO (17:07)
[2021-03-14] MEDS: POLYSACCHARIDE IRON COMPLEX 150 MG CAPSULE PO (17:08)
[2021-03-14] MEDS: DOCUSATE SODIUM 100 MG CAPSULE PO (17:08)
[2021-03-14] MEDS: IBUPROFEN 600 MG TABLET PO (17:09)
[2021-03-14 20:40] VITALS: BP 134/74; PULSE 70; RESP 16; TEMP 36.3
--- NOTE | 2021-03-14 20:50 | PC.NURSE ---
Patient viewed the discharge video Mother & Baby Care, The First Two Weeks online. Patient was given the opportunity and encouraged to ask questions. Patient verbalized understanding of information shared and has been given the mother/baby guide for home reference.
[2021-03-15 08:00] VITALS: BP 111/71; PULSE 69; RESP 16; TEMP 36.3
--- NOTE | 2021-03-15 08:38 | PM.OBPNVD ---
OB - PN: Subj Subjective Date/time seen: 03/15/21 08:38 Patient comments: no complaints baby status: doing well OB - PN: Obj Data Labs CBC & Chem 7: 03/14/21 04:18 Labs: Laboratory Results - last 24 hr 03/13/21 04:04 RPR Non-reactive OB - PN A/P Plan day: 2 Plan: routine care and discharge home Time Spent With Patient Time: Total time spent is greater than 50% in coordination of care (as documented) at patient's floor/unit and/or counseling patient: Review of Systems Review of Systems: All systems reviewed & are unremarkable except as noted in HPI and below Exam Const: General: cooperative, healthy appearing and comfortable Nutritional Appearance: average body habitus Orientation/consciousness: patient oriented x3 Limitations: no limitations
--- NOTE | 2021-03-15 08:39 | P.DS_ITS ---
DS: Admitting Diagnosis Discharge Date 03/15/21 Admitting Diagnosis labor OB - DS: Summary OB Procedures : None OB Procedures Intrapartum: Spontaneous Vag Delivery OB Procedures: : None Time Spent with Patient Time attestation: Total time spent providing and/or coordinating discharge services: DS: Data Data Completed and Pending Labs on day of discharge: Labs from last 24 hours 03/13/21 04:04 RPR Non-reactive Discharge Plan Discharge Attending physician on discharge: Jennifer Kendrick Discharging Clinician: Bouchra Chan Patient Disposition: Home, Self-Care Activity: pelvic rest Diet: regular Patient Instructions: Antibiotic Form Stand Alone Forms: General Discharge Information Follow-up/Referrals: Bouchra Chan, JUNEM [Certified Nurse Regulatory Agency Director] - 4 Weeks Discharge Medications: New ibuprofen 600 mg Tablet 600 mg PO Q6H PRN (Reason: Cramping) Qty: 30 RF: 0 Continued PNV cmb#95-ferrous fumarate-FA [] 28 mg iron- 800 mcg Tablet 1 tablet PO DAILY RF: 0 ferrous sulfate [Iron (ferrous sulfate)] 325 mg (65 mg iron) Tablet 325 mg PO BID RF: 0 Date of admission: 03/13/21 03:23 Primary Care Provider: PHYSICIAN,MARKETING PROJECT COORDINATOR Admitting Provider: Jennifer Kendrick Attending physician on admission: Jennifer Kendrick Condition: Stable
[2021-03-15] MEDS: DOCUSATE SODIUM 100 MG CAPSULE PO (09:41)
[2021-03-15] MEDS: POLYSACCHARIDE IRON COMPLEX 150 MG CAPSULE PO (09:41)
[2021-03-15] MEDS: MULTIVIT/MIN/PREN/FOL AC/IRON TABLET 1 TAB PO (09:41)
[2021-03-18 11:00] VITALS: BP 126/85; PULSE 82; RESP 16; TEMP 36.8; O2SAT 100
--- NOTE | 2021-03-20 08:30 | PCCCNOTE ---
Addendum entered by NAHUN Edmonds 03/20/21 11:43: 1145: Recvd email from [facility] that states: Your information has been reviewed and assessed by a Bowling Alley Mechanic and was also approved by a electronic controls repairer supervisor. The information you provided did not meet one of the criteria for an investigation (eligible victim, eligible perpetrator, eligible event, or jurisdiction). The information as been documented and will be kept on file. Should you learn of further information or have additional concerns, please feel free to contact us. Original Note: Baby's meconium came back positive for THC. [facility] Online Intake Report #[id number].
== END 2021-03-15 10:36 | disposition home or self-care (01) | DRG 560 ==
LOC: ANHLDR 03:36 → ANHOB2 23:30
PROVIDERS: Advanced Practice Midwife; Admitting Provider Obstetrics & Gynecology; Visit Provider Obstetrics & Gynecology
DX: O99.824 Streptococcus B carrier state complicating childbirth (principal); Z37.0 Single live birth; Z3A.38 38 weeks gestation of pregnancy
CPT/HCPCS: 36415; 80307; 85014; 85018; 85025; 86592; 86850; 86900; 86901; A9270; J0290; J2590; J2795; J7120

== ENCOUNTER 2021-12-09 15:10 | Observation (INO) | payer OTHER, SELFPAY ==
--- NOTE | 2021-12-09 15:10 | OBADM ---
This patient, Topher Stapleton, admitted to the OB room OB Post 115 for observation. Patient/family oriented to hospital policies and general routines including ID bracelet, bed and alarms, visiting hours, pain management, procedures, bathroom and other care routines, personal items, smoking policy, room service/diet, and visiting hours. Patient/Family are encouraged to report perceived risks to care and to ask questions if they do not understand what they are told or what they should do.
[2021-12-09 15:45] VITALS: BP 108/63; PULSE 66
[2021-12-09 15:50] VITALS: BMI 21.2
--- NOTE | 2021-12-14 09:28 | PM.OBTRLD ---
OB - Triage/Final Diagnosis Visit Information Date of evaluation: 12/09/21 Reason for evaluation: threatened labor Comments/Additional reasons for admission: I have assessed the risk for this patient, Topher Stapleton, and determined that she would benefit from observation care.
== END 2021-12-09 16:40 | disposition home or self-care (01) ==
PROVIDERS: Admitting Provider Obstetrics & Gynecology; Visit Provider Obstetrics & Gynecology
DX: O47.02 False labor before 37 completed weeks of gestation, second trimester (principal); Z3A.21 21 weeks gestation of pregnancy
CPT/HCPCS: 84112; G0378; G0379

== ENCOUNTER 2022-04-14 05:12 | Inpatient (IN) | payer OTHER, SELFPAY ==
[2022-04-14] VITALS (147 sets, daily range): BP systolic 89–132; BP diastolic 25–91; PULSE 68–126; RESP 18; TEMP 36.4–36.9; O2SAT 91–100; BMI 23.1
--- NOTE | 2022-04-14 05:44 | LDADM ---
This patient, Topher Stapleton, was admitted to Labor/Delivery/Recovery 106 on 04/14/22 at 05:12. Plans for labor, pain management and were discussed with patient. Patient/family oriented to hospital policies and general routines including ID bracelet, bed and alarms, visiting hours, pain management, procedures, bathroom and other care routines, personal items, smoking policy, room service/diet and guest tray routines, infant security routines, and visiting hours. Patient/Family are encouraged to report perceived risks to care and to ask questions if they do not understand what they are told or what they should do. See OBIX for further documentation.
[2022-04-14 06:01] LABS: Basophils Absolute Auto 0.1 K/mm3 (0.0-0.1); Basophils Percent Auto 0.6 % (0.2-1.2); Eosinophils Absolute Auto 0.1 K/mm3 (0-0.3); Eosinophils Percent Auto 0.9 % (0-4.4); Hematocrit 31.8 % (37.0-47.0); Hemoglobin 10.4 g/dL (12.0-15.0); Immature Granulocyte Absolute 0.11 K/mm3 (0.00-0.031); Lymphocytes Absolute Auto 2.32 K/mm3 (0.9-3.2); Lymphocytes Percent Auto 21.2 % (18.3-44.2); Mean Corpuscular HGB Conc 32.7 g/dl (32-36); Mean Corpuscular Hemoglobin 22.8 pg (26-34); Mean Corpuscular Volume 69.6 fl (80-100); Mean Platelet Volume 11.7 fl (7.4-10.4); Monocytes Absolute Auto 0.8 K/mm3 (0.1-0.6); Monocytes Percent Auto 7.3 % (2.6-8.5); Neutrophils Absolute Auto 7.6 K/mm3 (1.3-6.7); Platelet Count Result 285 k/mm3 (150-375); Red Blood Count 4.57 M/mm3 (4.2-5.4); Red Cell Distribution Width 13.2 % (11.5-14.5)
[2022-04-14] MEDS: LACTATED RINGERS 1,000 ML 125 ML IV CONT ×2 (06:41→14:09)
[2022-04-14] MEDS: OXYTOCIN 30 UNITS/NS 500 ML 30 UNITS/500 ML BAG IV CONT (06:42)
[2022-04-14] MEDS: AMPICILLIN 2 GM/NS 100 ML 2 GM/100 ML BAG IVPB (06:42)
[2022-04-14 06:43] LABS: Hypochromasia 2+ (NORMAL); Microcytosis 1+ (NORMAL); Ovalocytes 1+ (NORMAL); Platelet Estimate Adequate (Adequate); Schistocytes None Seen (NORMAL); Tear Drop Cells 1+ (NORMAL)
[2022-04-14] MEDS: AMPICILLIN 1 GM/NS 50 ML 1 GM/50 ML BAG IVPB ×2 (10:44→14:57)
--- NOTE | 2022-04-14 13:51 | WPDANESEPPF ---
Anes - Initial Pre Proc Eval Date/Time: 04/14/22 13:51 Surgeon: Jennifer Kendrick MD Pre Op Diagnosis: IOL Patient Data Age: 21 Gender: F Height: 1.68 m Weight: 65 kg Last Vital Signs Temp 36.6 C 04/14/22 10:10 Pulse 90 04/14/22 13:48 BP 128/81 04/14/22 13:48 Pulse Ox 100 04/14/22 13:49 O2 Del Method Room Air 04/14/22 05:40 Allergies Allergy/AdvReac Type Severity Reaction Status Date / Time No Known Allergies Allergy Verified 03/09/21 12:17 Home Medications Medication Instructions Recorded Confirmed Type vit no.95-ferrous 1 tablet PO DAILY 10/01/19 03/09/21 History fumarate 28 mg-folic acid 800 mcg tablet () ferrous sulfate 325 mg (65 mg 325 mg PO BID 02/20/21 04/14/22 History iron) tablet (Iron (ferrous sulfate)) Laboratory Tests 04/14/22 04/14/22 04/14/22 05:30 05:30 05:30 WBC 11.0 K/mm3 H K/mm3 (4.5-10.0) RBC 4.57 M/mm3 M/mm3 (4.2-5.4) Hgb 10.4 g/dL L g/dL (12.0-15.0) Hct 31.8 % L % (37.0-47.0) MCV 69.6 fl L fl (80-100) MCH 22.8 pg L pg (26-34) MCHC 32.7 g/dl g/dl (32-36) RDW 13.2 % % (11.5-14.5) Plt Count 285 k/mm3 k/mm3 (150-375) MPV 11.7 fl H fl (7.4-10.4) Immature Gran % (Auto) 1.0 % H % (0-0.5) Neut % (Auto) 69.0 % % (45.5-73.1) Lymph % (Auto) 21.2 % % (18.3-44.2) Yates % (Auto) 7.3 % % (2.6-8.5) Eos % (Auto) 0.9 % % (0-4.4) Baso % (Auto) 0.6 % % (0.2-1.2) Lymph # (Auto) 2.32 K/mm3 K/mm3 (0.9-3.2) Yates # (Auto) 0.8 K/mm3 H K/mm3 (0.1-0.6) Eos # (Auto) 0.1 K/mm3 K/mm3 (0-0.3) Baso # (Auto) 0.1 K/mm3 K/mm3 (0.0-0.1) Abs Immat Gran (auto) 0.11 K/mm3 H K/mm3 (0.00-0.031) Absolute Neuts (auto) 7.6 K/mm3 H K/mm3 (1.3-6.7) Absolute Nucleated RBC 0.0 K/mm3 K/mm3 (0.0-0.012) Nucleated RBC % 0.0 % % (0.0-0.2) Platelet Estimate Adequate (Adequate) Hypochromasia 2+ (NORMAL) Microcytosis 1+ (NORMAL) Tear Drop Cells 1+ (NORMAL) Ovalocytes 1+ (NORMAL) Schistocytes None seen (NORMAL) RPR Pending Blood Type O Positive Antibody Screen Negative Patient hx anesthesia problems: none Family hx anesthesia problems: none Results Review: All pre-operative results and documents have been reviewed as part of the pre-operative evaluation. [facility] Family History Family History Mother Hypertension Thyroid disease Sibling Thyroid disease Social History Social History Smoking status: Never smoker Second hand tobacco smoke exposure: No Substance use: never Lack of Transportation: No Lack of Food: Never True Current Housing: I Have Housing Concerned About Future Housing: No Difficulty Paying Gas/Electric Bills: No Difficulty Paying for Meds: No Currently Unemployed: No Education: High School Diploma/GED Difficulty w/ Childcare or Family Care: No Gender identity (if verbalized by the patient): Female Spiritual care concerns: No Anes - Eval Final PreProcedure Day of Procedure 04/14/22 13:51 Patient weight: normal Neurological: alert and oriented ASA classification: II Emergent: no Anesthetic plan: proceed Anesthesia type and monitoring: regional epidural and standard monitoring Results Review: All pre-operative results and documents have been reviewed as part of the pre-operative evaluation. Informed Consent: The patient's anesthetic plan and its attendant risks and benefits were discussed with the patient/family/POA. Questions were solicited and answers provided to the satisfaction of the patient/family/POA.
[2022-04-14 16:39] LABS: Rapid Plasma Reagin Non-Reactive (NonReactive)
--- NOTE | 2022-04-14 19:45 | PM.OBPRVD ---
OB - Delivery Note Procedure Delivery date: 04/14/22 Procedure: Induction method: AROM and Per Pitocin Protocol Delivery monitor: External FHT and Internal Uterine Route of delivery: Specimen: No Quantitative Blood Loss (ml): 100 Anesthesia type: Epidural Baby Date of : 04/14/22 Time of : 19:35 Weeks of gestation at delivery: 39 Infant gender: Male Weight (pounds): 8 Weight (ounces): 4 score one minute: 8 score five minutes: 9
[2022-04-14] MEDS: OXYTOCIN 30 UNITS/NS 500 ML 30 UNITS/500 ML BAG 125 UNITS IV CONT (20:10)
[2022-04-14] MEDS: WITCH HAZEL 40 PADS 1 PAD TOPICAL (21:55)
[2022-04-14] MEDS: BENZOCAINE 20% AER SPR (*SP) 56 GM CAN 1 SPRAY TOPICAL (21:55)
[2022-04-14] MEDS: IBUPROFEN 600 MG TABLET PO (22:02)
--- NOTE | 2022-04-14 22:25 | OBPPTRN ---
Patient transferred to post room #291 via W/C. Support person present. Oriented to unit, room, information board, rooming in, admission packet and security measures. Patient verbalizes understanding.
[2022-04-15] MEDS: IBUPROFEN 600 MG TABLET PO ×3 (04:35→17:20)
[2022-04-15 04:40] VITALS: BP 117/75; PULSE 70; RESP 18; TEMP 36.8
[2022-04-15 04:47] LABS: Hematocrit 30.7 % (37.0-47.0); Hemoglobin 10.1 g/dL (12.0-15.0)
[2022-04-15 07:45] VITALS: BP 115/74; PULSE 75; RESP 18; TEMP 37.1; O2SAT 99
[2022-04-15] MEDS: ACETAMINOPHEN 325 MG TABLET 650 MG PO ×2 (08:30→15:27)
[2022-04-15] MEDS: DOCUSATE SODIUM 100 MG CAPSULE PO ×2 (08:30→17:20)
[2022-04-15] MEDS: MULTIVIT/MIN/PREN/FOL AC/IRON TABLET 1 TAB PO (08:30)
--- NOTE | 2022-04-15 10:22 | PM.OBPNVD ---
OB - PN: Subj Subjective Date/time seen: 04/15/22 10:22 Patient comments: no complaints, pain well controlled, incisional pain, tolerating diet and flatus present OB - PN: Obj Data Labs 04/15/22 04:40 Labs: Laboratory Results - last 24 hr 04/14/22 04/15/22 05:30 04:40 Hgb 10.1 L Hct 30.7 L RPR Non-reactive OB - PN A/P Plan day: 1 Plan: routine care Comments: No problems, routine care Time Spent With Patient Time: Total time spent is greater than 50% in coordination of care (as documented) at patient's floor/unit and/or counseling patient: Exam Const: General: comfortable, no acute distress and alert Resp: Effort & Inspection: normal respiratory effort Auscultation: no crackles, no rales and no rhonchi Cardio: Rate: regular rate Heart sounds: no click, no murmurs and no rubs GI: Inspection: non-distended GI Palp: No Tenderness to palpation present (GI) Auscultation: normal bowel sounds Other: Incision - CDI Extrem: General: normal to inspection, no pedal edema and no calf tenderness
[2022-04-15 12:00] VITALS: BP 116/73; PULSE 67; RESP 16; TEMP 36.8; O2SAT 99
--- NOTE | 2022-04-15 13:32 | WPDANLDPN2 ---
Anes-Prog Note L&D Date/Time: 04/15/22 13:32 Neuro status: Neuro function grossly intact. Vital Signs: Last Vital Signs Temp 36.8 C 04/15/22 12:00 Pulse 67 04/15/22 12:00 Resp 16 04/15/22 12:00 BP 116/73 04/15/22 12:00 Pulse Ox 99 04/15/22 12:00 O2 Del Method Room Air 04/15/22 08:30 Pain score (VAS): 0 I/O: Intake & Output 04/14/22 04/15/22 04/15/22 23:59 07:59 15:59 Output Total 150 700 Balance -150 -700 Patient feedback: Patient satisfied with anesthetic care.
[2022-04-15 15:20] VITALS: BP 120/72; PULSE 66; RESP 16; TEMP 36.7; O2SAT 99
--- NOTE | 2022-04-15 17:35 | PC.NURSE ---
Breast pump provided due to this patient's request. Patient informed that since is nursing there is no indication for pumping right now but patient still requests a pump. Instructions given on cleaning, care, usage, that there should be no pain, pumping schedule for milk production, collection, and storage of human milk. Parents are encouraged to record pumping schedule on the [feeding sheet/pumping log]. Patient was assessed for correct placement, flange size, to pump for comfort and nipple stretching/stimulation. Mother voiced understanding.
[2022-04-15 19:35] VITALS: BP 116/55; PULSE 71; RESP 18; TEMP 36.4
--- NOTE | 2022-04-16 07:54 | PM.OBPNVD ---
OB - PN: Subj Subjective Date/time seen: 04/16/22 07:54 Patient comments: no complaints, pain well controlled and tolerating diet OB - PN: Obj Data Labs 04/15/22 04:40 OB - PN A/P Plan day: 2 Plan: routine care and discharge home Time Spent With Patient Time: Total time spent is greater than 50% in coordination of care (as documented) at patient's floor/unit and/or counseling patient: Exam Const: General: comfortable and no acute distress Resp: Effort & Inspection: normal respiratory effort Auscultation: no rales, no rhonchi and no wheezes Cardio: Rate: regular rate Heart sounds: no click, no murmurs and no rubs GI: GI Palp: Yes Soft to palpation and No Tenderness to palpation present (GI) Auscultation: normal bowel sounds Extrem: General: normal to inspection, no pedal edema and no calf tenderness
--- NOTE | 2022-04-16 07:54 | PM.OBDSVD ---
DS: Admitting Diagnosis Discharge Date 04/16/22 Admitting Diagnosis term OB - DS: Summary OB Procedures : None OB Procedures Intrapartum: Spontaneous Vag Delivery OB Procedures: : None Time Spent with Patient Time attestation: Total time spent providing and/or coordinating discharge services: Discharge Plan Discharge Discharging Clinician: Jennifer Kendrick Patient Disposition: Home, Self-Care Activity: pelvic rest Diet: regular Patient Instructions: Antibiotic Form Stand Alone Forms: General Discharge Information Follow-up/Referrals: Jennifer Kendrick MD [Physician] - Discharge Medications: Continued PNV cmb#95-ferrous fumarate-FA [] 28 mg iron- 800 mcg Tablet 1 tablet PO DAILY ferrous sulfate [Iron (ferrous sulfate)] 325 mg (65 mg iron) Tablet 325 mg PO BID Date of admission: 04/14/22 05:12 Primary Care Provider: PHYSICIAN,HOOP DRIVING MACHINE OPERATOR HELPER Admitting Provider: Jennifer Kendrick Attending physician on admission: Jennifer Kendrick Condition: Stable
[2022-04-16 08:55] VITALS: BP 113/80; PULSE 63; RESP 16; TEMP 37.3; O2SAT 99
--- NOTE | 2022-04-16 10:45 | PC.NURSE ---
[id number] Mother verbalizes she is able to independently latch with appropriate positioning/alignment. She denies any nipple discomfort and is responsively . is currently meeting outcomes for weight, output, jaundice and feeding frequencies of 8-12 times in 24 hours. Mother declines any additional assistance/education at this time. Mother is encouraged to call for assistance if her doesn?t latch or there is discomfort with latching. Mother voiced understanding of information shared and mom and baby guide reviewed for additional resource information.
[2022-04-16] MEDS: MULTIVIT/MIN/PREN/FOL AC/IRON TABLET 1 TAB PO (11:13)
[2022-04-16] MEDS: DOCUSATE SODIUM 100 MG CAPSULE PO (11:13)
[2022-04-16] MEDS: IBUPROFEN 600 MG TABLET PO (11:14)
[2022-04-17 08:42] VITALS: BP 130/85; PULSE 70; RESP 16; TEMP 36.8; O2SAT 99
== END 2022-04-16 13:31 | disposition home or self-care (01) | DRG 560 ==
LOC: ANHLDR 05:17 → ANHOB2 22:45
PROVIDERS: Admitting Provider Obstetrics & Gynecology; Visit Provider Obstetrics & Gynecology
DX: O99.824 Streptococcus B carrier state complicating childbirth (principal); O36.8330 Maternal care for abnormalities of the fetal heart rate or rhythm, third trimester, not applicable or unspecified; Z37.0 Single live birth; Z3A.39 39 weeks gestation of pregnancy
CPT/HCPCS: 36415; 85014; 85018; 85025; 86592; 86850; 86900; 86901; A9270; J0290; J2590; J2795; J7120

== ENCOUNTER 2024-03-16 17:26 | Emergency (ER) | payer OTHER, SELFPAY ==
[2024-03-16 17:26] VITALS: BP 146/87; PULSE 84; RESP 18; TEMP 36.3; O2SAT 100
[2024-03-16 17:46] VITALS: BP 120/86; O2SAT 100
--- NOTE | 2024-03-16 17:48 | ED.SOB ---
HPI - SOB/Dyspnea General Chief Complaint: Shortness of Breath/Dyspnea Stated Complaint: rapid weight loss; sob Time Seen by Provider: 03/16/24 17:33 Source: patient and family Mode of arrival: ambulatory Limitations: no limitations History of Present Illness HPI Narrative: Patient is a 23-year-old female with multiple body symptom complaints. They had a list of what least 10 different complaints at this time and none of them appear to be correlated. She did have some nausea and vomiting. She has been having weight loss over the last year of 75 lb. Occasional shortness of breath. MD elicited complaint: shortness of breath ( Occasional) Pertinent past history: other ( none) Onset (ago): year(s) (1) Context: other ( chronic changes over the past year) Timing: intermittent and progressively worsening Severity: moderate Exacerbating factors: nothing Relieving factors: nothing Known history of: other ( none) Associated symptoms: polyuria, palpitations, carpopedal spasm ( sweating of the hands and feet), abdominal pain ( GERD symptoms from time to time but not tonight), sense of impending doom, chest congestion and lightheadedness Treatment prior to arrival: none Related Data Home oxygen amount: none Home Medications Medication Instructions Recorded Confirmed No Home Medications 03/16/24 03/16/24 Allergies Allergy/AdvReac Type Severity Reaction Status Date / Time No Known Allergies Allergy Verified 03/16/24 18:07 Review of Systems Review of Systems: All systems reviewed & are unremarkable except as noted in HPI and below Constitutional: Constitutional: Reports no additional constitutional complaints Eyes: Eyes: Reports no additional eye complaints ENT: Reports system reviewed and no additional complaints, except as documented Cardiovascular: Cardiovascular: Reports no additional cardiovascular complaints Respiratory: Respiratory: Reports no additional respiratory complaints Gastrointestinal: Gastrointestinal: Reports no additional gastrointestinal complaints Genitourinary: Genitourinary: Reports no additional female genitourinary complaints Musculoskeletal: Musculoskeletal: Reports no additional musculoskeletal complaints Integumentary/Breasts: Skin/Breast: Reports system reviewed and no additional complaints, except as docu Neurologic: Reports system reviewed and no additional complaints, except as documented Psychiatric: Psychiatric: Reports no additional psychiatric complaints Endocrine: Endocrine: Reports no additional endocrine complaints Hematologic/Lymphatic: Hematologic/Lymphatic: Reports no additional hematologic/lymphatic complaints Allergic/Immunologic: Allergic/Immunologic: Reports no additional allergic/immunologic complaints [facility] Family History Family History Mother Hypertension Thyroid disease Sibling Thyroid disease Social History Social History Smoking status: Never smoker Second hand tobacco smoke exposure: No Substance use: never Lack of Transportation: No Lack of Food: Never True Current Housing: I Have Housing Concerned About Future Housing: No Difficulty Paying Gas/Electric Bills: No Difficulty Paying for Meds: No Currently Unemployed: No Education: High School Diploma/GED Difficulty w/ Childcare or Family Care: No Gender identity (if verbalized by the patient): Female Spiritual care concerns: No Exam Const: General: healthy appearing Nutritional Appearance: well nourished Orientation/consciousness: patient oriented x3 HENMT: Head: normal to inspection Ears: external ears normal Face/Nose/Sinus: Normal external nose present Eyes: Conjunctivae: conjunctivae normal Pupils: Equal, round and reactive pupils present EOM: EOMs intact bilaterally Neck: Neck: normal visual inspection Chest: Chest palpation & inspection: normal inspection of the chest Resp: Effort & Inspection: normal respiratory effort and not labored Auscultation: clear to auscultation bilaterally and no crackles Cardio: Rate: regular rate Rhythm: regular rhythm Heart sounds: no murmurs GI: Inspection: non-distended GI Palp: Yes Soft to palpation and No Tenderness to palpation present (GI) Auscultation: normal bowel sounds : General: Yes bladder normal to palpation Back/Spine/Pelvis: Back: no CVA tenderness Skin: General skin exam: normal color Rashes: no rashes Wounds: no wounds Neuro: General: patient oriented x3 Cranial nerves: Yes Nystagmus not present Speech: normal speech Extrem: General: normal to inspection Psych: Mental Status: mental status grossly normal Affect: normal affect Attitude: cooperative Course Vital Signs Vital signs: Vital Signs Temperature 36.3 C L 03/16/24 17:26 Pulse Rate 84 03/16/24 17:26 Respiratory Rate 18 03/16/24 17:26 Blood Pressure 146/87 H 03/16/24 17:26 Pulse Oximetry 100 03/16/24 17:26 Oxygen Delivery Room Air 03/16/24 17:26 Temperature 36.6 C 03/16/24 21:40 Pulse Rate 78 03/16/24 21:40 Respiratory Rate 18 03/16/24 21:40 Blood Pressure 135/86 03/16/24 21:40 Pulse Oximetry 100 03/16/24 21:40 Oxygen Delivery Room Air 03/16/24 21:40 MDM - SOB/Dyspnea MDM Narrative Medical decision making narrative: Patient is a 23-year-old female with multiple bodily complaints. We will do a basic workup at this time to include a test. CT scan not done secondary to test positive. Beta hCG level was done and it was elevated. At this time we will stop the further workup and have her see the OBGYN as soon as possible. She is to come back to the ER with any heavy bleeding or pains of the abdomen. At this time she has no bleeding since 2021 and no pains of the abdomen at this time. Lab Data 03/16/24 19:14 03/16/24 19:14 Labs: Lab Results 03/16/24 03/16/24 Range/Units 19:14 19:53 WBC 9.1 (4.8-10.8) K/mm3 RBC 5.22 (4.20-5.40) M/mm3 Hgb 11.1 L (12.0-15.0) g/dL Hct 34.2 L (35.0-49.0) % MCV 65.5 L (78.0-102.0) fL MCH 21.3 L (27.0-31.0) pg MCHC 32.5 (32-36) g/dL RDW 14.6 H (11.6-14.4) % Plt Count 353 (150-420) K/mm3 MPV 11.3 (9.2-11.8) fl Immature Gran % (Auto) 0.4 H (0.0-0.0) % Neut % (Auto) 69.6 (50.0-70.0) % Lymph % (Auto) 23.7 (18.0-42.0) % [place] % (Auto) 5.1 (2.0-11.0) % Eos % (Auto) 0.6 L (1.0-6.0) % Baso % (Auto) 0.6 (0.0-1.0) % Lymph # (Auto) 2.15 (1.10-4.50) K/mm3 [place] # (Auto) 0.46 (0.10-0.90) K/mm3 Eos # (Auto) 0.05 (0.02-0.50) K/mm3 Baso # (Auto) 0.05 (0.00-0.10) K/mm3 Abs Immat Gran (auto) 0.04 H (0.00-0.00) K/mm3 Absolute Neuts (auto) 6.34 (1.70-7.20) K/mm3 Absolute Nucleated RBC 0.00 (0.00-0.00) K/mm3 Nucleated RBC % 0.0 (0-0.0) % Sodium 140 (136-145) mmol/L Potassium 3.9 (3.5-5.1) mmol/L Chloride 104 (98-108) mmol/L Carbon Dioxide 29 (21-32) mmol/L Anion Gap 7 (4-12) mmol/L BUN 12 (7-18) mg/dL Creatinine 0.86 (0.55-1.02) mg/dL Estim Creat Clear Calc 71 ml/min Estimated GFR > 60 (59 - ) Glucose 92 (70-99) mg/dL Calculated Osmolality 289 (285-295) mOsm/kg Calcium 9.0 (8.5-10.1) mg/dL Magnesium 2.5 H (1.8-2.4) mg/dL Total Bilirubin 0.7 (0.00-1.00) mg/dL AST 10 L (15-37) U/L ALT 14 (14-59) U/L Alkaline Phosphatase 178 H (46-116) U/L Total Protein 7.5 (6.4-8.2) g/dL Albumin 4.2 (3.4-5.0) g/dL Lipase 64 (16-77) U/L TSH 3.64 (0.36-3.74) uIU/mL Beta HCG, Quant 62983.00 H (0-6) mIU/mL Urine Color Light yellow (Yellow) Urine Appearance Clear (Clear) Urine pH 6.0 (5.0-8.0) Ur Specific [place] 1.015 (1.010-1.020) Urine Protein Negative (Negative) Urine Glucose (UA) Negative (Negative) Urine Ketones Negative (Negative) Ur Blood (Man) Negative (Negative) Urine Nitrate Negative (Negative) Urine Bilirubin Negative (Negative) Urine Urobilinogen 0.2 (0.2-1.0) mg/dL Leukocyte Esterase Rfl Negative (Negative) NEELIMA/UL Urine Test Positive Urine Opiates Screen Negative (Negative) Urine Methadone Screen Negative (Negative) Ur Barbiturates Screen Negative (Negative) Ur Phencyclidine Scrn Negative (Negative) Ur Amphetamine Screen Negative (Negative) U Benzodiazepines Scrn Negative (Negative) Urine Cocaine Screen Negative (Negative) U Cannabinoids Screen Positive A (Negative) Discharge Plan Discharge Clinical Impression: Qualifiers: Weeks of gestation: unspecified Qualified Code(s): Z34.90 - Encounter for supervision of normal , unspecified, unspecified trimester Patient Disposition: Home, Self-Care Condition: Stable Instructions: (ED) Additional Instructions: Please follow-up with the primary doctor and an OBGYN as soon as possible. You are positive for and the blood level correlates with somewhere around the end of the 1st trimester in somewhere into the 2nd trimester possibly. You have many multiple bodily complaints that require further workup, but at this time, we will await for OBGYN to see you 1st and check on the . Further, you can be referred out to specialist to further workup your complaints. Make sure to start taking a multi-vitamin daily for . No alcohol or caffeine. Wear your seatbelt. Come back to the ER with any vaginal bleeding or abdominal pains. Prescriptions: No Action No Home Medications Follow-up/Referrals: UNKNOWN,DOCTOR [Primary Care Provider] - Time of Disposition: 21:31
[2024-03-16 18:15] VITALS: BP 112/99; O2SAT 100
--- NOTE | 2024-03-16 18:23 | PC.NURSE ---
PT SITTING IN ROOM ON COT TALKING WITH SIGNIFICANT OTHER AT THIS TIME. PT STILL WAITING ON MD TO SEE. NO DISTRESS IS NOTED AT THIS TIME.
--- NOTE | 2024-03-16 18:54 | ECG_ITS ---
Test Date: 2024-03-16 19:21:46 Measurements Intervals [place] Rate: 65 P: 67 IL: 154 QRS: 72 QRSD: 86 T: 59 QT: 402 QTc: 419 Interpretive Statements SINUS RHYTHM WITH OCCASIONAL VENTRICULAR PREMATURE COMPLEXES INCOMPLETE RIGHT BUNDLE BRANCH BLOCK MINIMAL Q WAVES- ANTEROLAT/INF LEADS BORDERLINE ECG No previous ECG available for comparison Electronically Signed On 03-17-2024 08:09:55 CDT by Casey Casanova D.O.
--- NOTE | 2024-03-16 19:00 | PC.NURSE ---
AWAITING ORDERS FROM ERMD. RESTING IN ROOM ON COT WITH SIGNIFICANT OTHER.
[2024-03-16 19:19] LABS: Basophils Absolute Auto 0.05 K/mm3 (0.00-0.10); Basophils Percent Auto 0.6 % (0.0-1.0); Eosinophils Absolute Auto 0.05 K/mm3 (0.02-0.50); Eosinophils Percent Auto 0.6 % (1.0-6.0); Hematocrit 34.2 % (35.0-49.0); Hemoglobin 11.1 g/dL (12.0-15.0); Immature Granulocyte Absolute 0.04 K/mm3 (0.00-0.00); Immature Granulocyte Percent A 0.4 % (0.0-0.0); Lymphocytes Absolute Auto 2.15 K/mm3 (1.10-4.50); Lymphocytes Percent Auto 23.7 % (18.0-42.0); Mean Corpuscular HGB Conc 32.5 g/dL (32-36); Mean Corpuscular Hemoglobin 21.3 pg (27.0-31.0); Mean Corpuscular Volume 65.5 fL (78.0-102.0); Mean Platelet Volume 11.3 fl (9.2-11.8); Monocytes Absolute Auto 0.46 K/mm3 (0.10-0.90); Monocytes Percent Auto 5.1 % (2.0-11.0); Neutrophils Absolute Auto 6.34 K/mm3 (1.70-7.20); Neutrophils Percent Auto 69.6 % (50.0-70.0); Platelet Count Result 353 K/mm3 (150-420); Red Blood Count 5.22 M/mm3 (4.20-5.40); Red Cell Distribution Width 14.6 % (11.6-14.4); White Blood Count 9.1 K/mm3 (4.8-10.8)
[2024-03-16 19:22] LABS: Add Urine Microscopic? NO; Appearance Urine Clear (Clear); Bilirubin Urine Negative (Negative); Blood Urine Negative (Negative); Color Urine Light Yellow (Yellow); Glucose Urine UA Negative (Negative); Ketones Urine Negative (Negative); Leukocyte Esterase Ur Negative LEU/UL (Negative); Nitrate Urine Negative (Negative); Protein Urine Negative (Negative); Specific Grav Ur 1.015 (1.010-1.020); Urobilinogen Urine 0.2 mg/dL (0.2-1.0)
[2024-03-16 19:23] LABS: Pregnancy On Board Control Positive; Urine Pregnancy Test Positive
[2024-03-16 19:25] LABS: Amphetamine Screen Urine Negative (Negative); Barbiturate Screen Urine Negative (Negative); Benzodiazepines Screen Urine Negative (Negative); Cannabinoid Screen Urine Positive (Negative); Cocaine Screen Urine Negative (Negative); Methadone Screen Urine Negative (Negative); Opiate Screen Urine Negative (Negative); Phencyclidine Screen Urine Negative (Negative)
--- NOTE | 2024-03-16 19:25 | PC.NURSE ---
Pt resting w/ spouse at side, no distress noted, IV started w/o difficulty. VSS.
[2024-03-16 19:30] VITALS: BP 126/82; PULSE 74; RESP 18; O2SAT 100
[2024-03-16 19:43] LABS: Alanine Aminotransferase 14 U/L (14-59); Albumin Level 4.2 g/dL (3.4-5.0); Alkaline Phosphatase 178 U/L (46-116); Anion Gap 7 mmol/L (4-12); Aspartate Amino Transferase 10 U/L (15-37); Bilirubin,Total 0.7 mg/dL (0.00-1.00); Blood Urea Nitrogen 12 mg/dL (7-18); Carbon Dioxide 29 mmol/L (21-32); Chloride 104 mmol/L (98-108); Estimated CRCL calculation 71 ml/min; Estimated Glomerular Filt Rate > 60; Glucose 92 mg/dL (70-99); Lipase 64 U/L (16-77); Magnesium 2.5 mg/dL (1.8-2.4); Osmolality Calculated 289 mOsm/kg (285-295); Potassium 3.9 mmol/L (3.5-5.1); Sodium 140 mmol/L (136-145); Thyroid Stimulating Hormone 3.64 uIU/mL (0.36-3.74); Total Protein 7.5 g/dL (6.4-8.2)
--- NOTE | 2024-03-16 21:26 | PC.NURSE ---
ERP in to discuss pts test results w/ her and finding of + preg test. Advised pt she will need to f/u w/ her OB Dr on Tuesday morning for further studies if needed. VSS, pt will be d/c home.
--- NOTE | 2024-03-16 21:37 | PC.NURSE ---
Pt refused HIV testing after finding out she is , refusal signed.
[2024-03-16 21:40] VITALS: BP 135/86; PULSE 78; RESP 18; TEMP 36.6; O2SAT 100
== END 2024-03-16 21:40 | disposition home or self-care (01) ==
PROVIDERS: Emergency Provider Emergency Medicine
DX: Z34.90 Encounter for supervision of normal pregnancy, unspecified, unspecified trimester (principal)
CPT/HCPCS: 36415; 80053; 80307; 81003; 81025; 83690; 83735; 84443; 84702; 85025; 93005; 99283

== ENCOUNTER 2024-10-31 20:49 | Outpatient (CLI) | payer OTHER, SELFPAY ==
--- NOTE | 2024-10-31 21:00 | PC.NURSE ---
Addendum entered by Nicolasa Islas RN 11/01/24 02:26: Pt educated to present to L&D immediately if she experienced DFM. pt verbalizes understanding. Original Note: Pt presents to L&D with complaints of green discharge. Pt states she is also concerned as a few days ago her feet turned purple and got numb when she was resting at home as well as LLQ pain that has not resolved in multiple days. Pt states she is also concerned as she does not feel her baby move at night. Neuro and musculoskeletal assessment were performed and WNL. SVE and ROM+ were also performed. No discharge noted on glove. Speculum exam performed by Sheela Montano and no green discharge was noted.
--- OUTSIDE RECORDS SUMMARY | 2024-10-31 22:08 | XMS_ITS | Continuity of Care Document ---
Author Organization [facility] [place] Address [address] [place] [address] Assessment No assessment recorded. Plan of Treatment Reminders Order Date Submit Date Provider Last Modified By Organization Details Last Modified Time Details Appointments INDUCTION 2024 06:30A M Jennifer KENDRICK MD Not available Not available Not available Lab None recorded. Referral None recorded. Procedures None recorded. Surgeries None recorded. Imaging None recorded. Medication Orders None recorded. Patient TargetsNo targets recorded. Patient InstructionsNo instructions recorded. Reason for Referral None Reported. Results Created Date Observation Date Name Description Value Unit Range Abnormal Flag Note LastModifiedBy Organization Detail LastModifiedTime 05/24/19 25 05/24/2024 US, obste tric, limit ed No observ ation record ed. nica [place] [address], [place], [address], 05/24/2024 18:48:00 05/24/19 25 05/24/2024 US, obste tric, limit ed No observ ation record ed. [email or web address] [address], [facility], [place], [address], 05/24/2024 21:16:16 06/21/19 25 06/21/2024 US, obste tric, 2nd or 3rd trime ster No observ ation record ed. [email or web address] [place] [address], [place], [address], 06/21/2024 18:39:16 06/21/19 25 06/21/2024 US, obste tric, follo w-up No observ ation record ed. FILEMON Gayla [address], [place], [address], 10/04/2024 13:35:41 08/18/19 25 08/17/2024 US, obste tric, follo w-up No observ ation record ed. onni Gayla [address], [place], [address], 08/29/2024 10:46:08 08/18/19 25 08/17/2024 US, obste tric, follo w-up No observ ation record ed. [facility] [address], [place], [address], 08/17/2024 17:51:41 09/28/19 25 09/27/2024 US, obste tric, follo w-up No observ ation record ed. [facility] [address], [place], [address], 09/27/2024 12:37:03 09/28/19 25 09/27/2024 US, obste tric, follo w-up No observ ation record ed. FILEMON Gayla [address], [place], [address], 10/04/2024 13:35:41 Result Notes None recorded. Problems Name Problem SNOMED Code Status Onset Date Resolution Date Notes Provider Name and Address Organization Details Recorded Time Pregnanc y detectio n examinat ion Completed 201807/10/2020 Encounte r for pregnanc y test, result positive ;Recorde d Elsewher e: No Locat ion: [facility] S ource: EHR Seasonal Customer Service Associate sheron: N Practi ce ID: 0001 Juvenal lable Time: 01:45:00 PM Norma Link [facility] [place] - [facility] 17:06:03 Normal pregnanc y in multigra john [id number] Completed 201707/10/2020 Encounte r for suprvsn of normal pregnanc y, second trimeste r;Record ed Elsewher e: No Locat ion: Sandi fleming [facility] S ource: EHR Seasonal Customer Service Associate sheron: Riki Pope ce ID: 0001 Juvenal lable Time: 11:00:00 AM Norma hannah, [facility] 17:06:00 Pregnanc y, childbir th and puerperi um finding Completed 201707/10/2020 Encntr for suprvsn of normal first preg, second trimeste r;Record ed Elsewher e: No Locat ion: [facility] S ource: EHR Seasonal Customer Service Associate sheron: Riki Pope ce ID: 0001 Juvenal lable Time: 02:15:00 PM Norma hannah [facility] 17:06:06 Antenata l screenin g for malforma tion Completed 201907/10/2020 Encounte r for antenata l screenin g for malforma tions;Re corded Elsewher e: No Locat ion: Sandi fleming [facility] S ource: EHR Seasonal Customer Service Associate sheron: Riki Pope ce ID: 0001 Juvenal lable Time: 09:00:00 AM Norma hannah, [facility] 17:05:43 Uterine size for dates discrepa ncy Completed 201807/10/2020 Uterine size-lynda e discrepa ncy, third trimeste r;Record ed Elsewher e: No Locat ion: Sandi fleming [facility] S ource: EHR Seasonal Customer Service Associate sheron: N Niko ce ID: 0001 Juvenal lable Time: 10:00:00 AM Norma hannah [facility] 17:06:12 Lochia finding Completed 201807/10/2020 Encounte r for routine postpart um follow-u p;Record ed Elsewher e: No Locat ion: [facility] S ource: EHR Seasonal Customer Service Associate sheron: N Michaelti ce ID: 0001 Juvenal lable Time: 03:30:00 PM Norma hannah [facility] 17:05:58 Gestatio n period, 11 weeks [id number] Completed 201707/10/2020 11 weeks gestatio n of pregnanc y;Record ed Elsewher e: No Locat ion: [facility] S ource: EHR Seasonal Customer Service Associate sheron: N Practi ce ID: 0001 Juvenal lable Time: 03:00:00 PM Norma hannah [facility] 17:05:47 Antenata l screenin g Completed 201707/10/2020 Encounte r for other antenata l screenin g follow-u p;Record ed Elsewher e: No Locat ion: [facility] S ource: EHR Seasonal Customer Service Associate sheron: N Practi ce ID: 0001 Juvenal lable Time: 10:30:00 AM Norma hannah [facility] 17:05:42 Gestatio n period, 37 weeks [id number] Completed 201807/10/2020 37 weeks gestatio n of pregnanc y;Record ed Elsewher e: No Locat ion: [facility] S ource: EHR Seasonal Customer Service Associate sheron: N Practi ce ID: 0001 Juvenal lable Time: 10:00:00 AM Norma hannah [facility] 17:05:52 Gestatio n period, 36 weeks [id number] Completed 201807/10/2020 36 weeks gestatio n of pregnanc y;Record ed Elsewher e: No Locat ion: [facility] S ource: EHR Seasonal Customer Service Associate sheron: N Practi ce ID: 0001 Juvenal lable Time: 08:30:00 AM Norma hannah [facility] 17:05:50 Rubella screenin g status [id number] Completed 201707/10/2020 Encounte r for antenata l screenin g, unspecif ied;Tree rded Elsewher e: No Locat ion: [facility] S ource: EHR Seasonal Customer Service Associate sheron: N Practi ce ID: 0001 Juvenal lable Time: 01:00:00 PM [facility] 17:06:09 Medical examinat ion for suspecte d conditio n Completed 201907/10/2020 Encounte r for suspecte d cervical shorteni ng ruled out;Tree rded Elsewher e: No Locat ion: [facility] S ource: EHR Seasonal Customer Service Associate sheron: N Practi ce ID: 0001 Juvenal lable Time: 02:30:00 PM Norma Nikolayshanell hannah, [facility] 17:05:59 Pregnanc y, childbir th and puerperi um finding Completed 201707/10/2020 Encntr for suprvsn of normal first preg, first trimeste r;Practi ce ID: 0001 Norma Nikolay hannah, [facility] 17:06:04 Pregnanc y, childbir th and puerperi um finding Completed 201807/10/2020 Oth pregnanc y related conditio ns, third trimeste r;Practi ce ID: 0001 Norma hannah, [facility] 17:05:45 Gestatio n period, 33 weeks [id number] Completed 201807/10/2020 33 weeks gestatio n of pregnanc y;Practi ce ID: 0001 Norma hannah, [facility] 17:05:48 Pregnanc y-induce d edema and proteinu riki without hyperten nasrin 891834117 Completed 201807/10/2020 Gestatio nal edema with proteinu riki, unspecif ied trimeste r;Practi ce ID: 0001 Norma Link [place], [facility] 17:06:07 Gestatio n period, 35 weeks [id number] Completed 201807/10/2020 35 weeks gestatio n of pregnanc y;Practi ce ID: 0001 Norma Link [place], [facility] 17:05:49 Lacerati on of female perineum Completed 201807/10/2020 First degree perineal lacerati on during delivery ;Practic e ID: 0001 Norma Link [place], [facility] 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 17:05:55 Single live from singleto n pregnanc y [id number] Completed 201807/10/2020 Single live ;Pr actice ID: 0001 Norma Link [place], [facility] 17:06:11 Gestatio n period, 39 weeks 25765632 Completed 201807/10/2020 39 weeks gestatio n of pregnanc y;Practi ce ID: 0001 Norma Link [place], [facility] 17:05:53 Pregnanc y 58872002 Completed 202003/31/2021 Lyndsay Whitaker null, [facility] 5 16:05:03 History of growth retardat ion [id number] 9108 Completed 2nd preg- Growth 66% on 01/27 start weekly antenata l testing 32wks schedule d Alexandria Bohnenstieh l null, [facility] 1 15:13:32 Cassi burnette user [id number] Completed Discusse rohit @ 01/15 appt Alexandria hannah, [facility] 1 15:13:32 Anemia of pregnanc y 99267595 Completed IV iron schd 03/09 - Taking iron QD, tried to do BID- makes her sick Alexandria santana null, [facility] 1 15:13:32 Noncompl iance with treatmen t 9143316 Completed NS appts here and for iron infusion s Alexandria santana null, [facility] 1 15:13:32 Pregnanc y 05220625 Completed 202107/22/2022 Lynsdayrenita Whitaker [place], [facility] 5 16:05:03 Pregnanc y 00274440 Active 2024 Lyndsay Whitaker [facility], [facility] 5 16:05:03 growth restrict ion 59839781 Active RESOLVED Vasile Kendrick MD [address], [place], [address], [place] [facility] 5 15:24:27 Anemia 072991984 Active slofe BID Iron infusion s - order faxed 08/29 Dayanabrett Faulkner [place], [facility] 5 10:49:02 Anemia 335238742 Active slofe BID Iron infusion s - order faxed 08/29 Dayana Kaushik [facility], [facility] 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 5 13:38:33 Pregnanc y 67068460 Completed 201904/03/2020 Lyndsay Whitaker null, [facility] 5 16:05:03 growth restrict ion 08676260 Completed [facility] Meredith Mane null, [facility] 0 16:31:51 Problem Notes None recorded. Procedures Surgical History Date Name Laterality Status Provider Name and Address Organization Details Recorded Time 09/16/2020 Date of Last Pap Smear completed Norma Link [facility] 07/14/2021 17:52:01 Imaging Results None recorded. Procedure Notes None recorded. Medical Equipment None Reported. Allergies No known drug allergies Medications Name Sig Start Date Stop Date Status Note LastModified by Organization Details LastModified Time amoxicill in 500 mg capsule TAKE 1 CAPSULE BY MOUTH EVERY 6 HOURS UNTIL GONE 05/21 completed Not Available Not Available Not Available fluconazo le 150 mg tablet Take 1 tablet by oral route. 07/14 completed Not Available Not Available Not Available amoxicill in 875 mg tablet 09/20 completed Not Available Not Available Not Available lidocaine HCl 2 % mucosal solution SWISH AND SPIT 5ML BY MOUTH FOUR TIMES DAILY FOR 5 DAYS. 05/21 completed Not Available Not Available Not Available ondansetr on 4 mg disintegr ating tablet Place 1 tablet every 8 hours by translin gual route. 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 07/10/2020 17:09:18 If You Are , What Was Your Level Of Alcohol Consumption Prior To ? Occasional [email or web address] Information not available 09/30/2021 Are You Blind Or Do You Have Difficulty Seeing? No [email or web address] Information not available 09/30/2021 What Is Your Level Of Caffeine Consumption? Occasional [email or web address] Information not available 09/30/2021 In The 14 Days Before Symptom Onset, Have You Had Close Contact With A Laboratory-confir med COVID-19 While That Case Was Ill? No [email or web address] Information not available 09/30/2021 In The 14 Days Before Symptom Onset, Have You Had Close Contact With A Person Who Is Under Investigation For COVID-19 While That Person Was Ill? No [email or web address] Information not available 09/30/2021 Have You Been To An Area Known To Be High Risk For COVID-19? No [email or web address] Information not available 09/30/2021 Are You Deaf Or Do You Have Serious Difficulty Hearing? No [email or web address] Information not available 09/30/2021 What Type Of Diet Are You Following? REGULAR [email or web address] Information not available 09/30/2021 Have You Ever Been Counseled For Unhealthy Alcohol Use? No [email or web address] Information not available 09/30/2021 Do You Use Your Seat Belt Or Car Seat Routinely? Yes [email or web address] Information not available 09/30/2021 Do You Have Smoke And Carbon Monoxide Detectors In Your Home? Yes Information not available 09/30/2021 Do You Use Sunscreen Routinely? Yes [email or web address] Information not available 09/30/2021 Has Tobacco Cessation Counseling Been Provided? No [email or web address] Information not available 09/30/2021 Do You Have Difficulty Walking Or Climbing Stairs? No [email or web address] Information not available 09/30/2021 Sex: Unknown Functional Status Question Answer Note LastModified by Organizat ion Details LastModified Time Do you use any illicit or recreational drugs? No [email or web address] Information not available 09/30/2021 Do you or have you ever used any other forms of tobacco or nicotine? No [email or web address] Information not available 09/30/2021 What is your level of alcohol consumption? Occasional [email or web address] Information not available 09/30/2021 Are you able to walk? YESWOREST [email or web address] Information not available 09/30/2021 Are you able to care for yourself? Yes [email or web address] Information n ot available 09/30/2021 Do you have difficulty dressing or bathing? No Information not available 09/30/2021 What is your exercise level? Occasional Information not available 09/30/2021 Mental Status Question Answer Note LastModified by Organization D etails LastModified Time Do you feel stressed (tense, restless, nervous, or anxious, or unable to sleep at night)? [id number] [email or web address] Information not available 09/30/2021 Family History Relationship Description Onset Age of this Age Resolved Age Notes LastModified by Organization Details LastModified Time Mother Hypertensive disorder [email or web address] Not available 2019 15:49:03 Mother Disorder of thyroid gland [email or web address] Not available 2019 15:49:28 Brother Disorder of thyroid gland [email or web address] Not available 2019 15:49:19 Maternal Uncle Heart disease [email or web address] Not available 2019 15:49:39 Maternal Aunt Carcinoma in situ of breast Not available 2024 15:59:57 Medical History Condition Response Allergies (Food, seasonal, environmental ) N Other N Drug/Latex Allergies/Reactions N Breast Cancer N Blood Transfusion N Lung Disease N Dermatologic Disorders N Defects or Inherited Disease N Breast Problem N Gestational Diabetes N Hematologic disorders N Anesthesia Complications N History of STI N Deep Vein Thrombosis N Polycystic ovary syndrome N Anxiety Disorder N Autoimmune disease N Arthritis N Polyps N Infertility N History of abnormal pap N Acid Reflux (GERD) N Cancer N Varicosities N Stroke N Neurologic/Epilepsy N Endometriosis N High Cholesterol N Headaches N Fibromyalgia N Kidney Disease N Heart Problems Y Thyroid Problems N Kidney or Bladder Problems N GI Problems N Eating Disorder N Anemia N Art (IVF or FET) N Psychiatric Illness N Ovarian Cancer N Diabetes N Pulmonary (TB, Asthma) N Hepatitis/Liver Disease N No Past Medical History N Eczema N Urinary Tract Infection N Abuse/Domestic Violence N Asthma N Trauma/Violence N Depression/ depression N Heart Disease Y Pre-Eclampsia N Hypertension N Osteoporosis N Thrombophilias N Gynecological History Statement/Question Response Flow Light Date of LMP 06/30/2021 Was last menstrual period normal N STIs/STDs N HPV Vaccine N Current Control Method Are cycles usually normal N Sexually Active? Y Menses Monthly N Date of Last Pap Smear 09/16/2020 Sexual Problems? N LMP Approximate Obstetrics History GPAL:G 7 P 4 0 2 4 Type Value Full Term 4 Spontaneous 2 Living 4 Total 7 Past Encounters Encounter ID Performer Location Encounter Start Date Encounter Closed Date Diagnosis/Indication Diagnosis SNOMED-CT Code Diagnosis ICD10 Code Diagnosis Note [id number] Vasile Kendrick MD [place] [address],[facility] [place] [address] 10/16/2024 09:38:14 10/18/2024 11:18:10 care status [id number] Z34.83 [id number] Vasile Kendrick MD [place] [address],[facility] [place] [address] 10/24/2024 13:46:49 10/24/2024 14:42:46 care status [id number] Z34.83 [id number] Vasile Kendrick MD [place] [address],[place] [address] 10/31/2024 08:40:31 10/31/2024 17:21:58 Health Concerns Section Related Observation LastModified by Organization Detai ls LastModified Time None Recorded Concern Status LastModified by Organization Details LastModified Time None Recorded Payers Encounter Date Sequence Insurance Name Policy Number Policy Baldwin Covered Member ID Baldwin Member ID Guarantor Name 10/31/2024 1 [facility] - DOS ON OR AFTER 20 (MEDICAID REPLACEMENT - HMO) Topher Chauhan [id number] Topher Greene OBGyn Episode Ob Episode Information Episode Created Date Number of Fetuses Patient Bloodtype Patient rh Status Prepregnancy Weight lbs Domestic Partner Domestic Partner Phone Father Name 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 History of in 2nd pregnancyNL 06/21/24 Anataomy U/S. EFW 43% HC 13%. 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 [id number] + Carrier bab y low risk Anemia 027146868 ana m quiroz infusions - order faxed 08/29 Jakob Calculation Initial Jakob Date Initial Exam Date Initial Exam Provider Initial Ultrasound Date Last Menstrual Period Date Ultra Sound Weeks Gestation 05/24/2024 05/24/2024 16 Eighteen To Twenty Week Jakob Update Ultra Sound Date Fundal Height At Umbil Quickening Date Ultra Sound Latest Weeks Gestation Final Jakob Confirmed By Final Jakob Confirmed Date Final Jakob Date Ultra Sound Latest Days Gestation 0 [email or web address] 05/24/2024 11/08/19 25 0 Pre-tone Flowsheet Flowsheet Date 05/24/2024 Hernandez Score Blood Edema Fundus Height Fundus Units Glucose Ketones Leukocytes Nitrite Labor Signs Protein Cervic Dilation Cervic Effacement Cervic Station Type Weight in lbs Pre/Post Dialysis Refused Weight 123.533332401391 BP Diastolic BP Location Tested BP Systolic BP Type 64 L arm 101 sitting Fetus Heart Rate Present A 145 Fetus Movement A No Comments this patient is a 23 year-ol d multiparous female at 16 weeks' gestation who presents for initial care. She has a history of term vaginal births. Her medical, surgical, obstetric history is unremarkable. She is vaccinated. She was given precautions recommendations for . We talked about vaccines in . Talked about care in detail. She is having genetic testing. She had a normal 12 week ultrasound. To begin routine care. Flowsheet Date 06/21/2024 Hernandez Score Blood Edema Fundus Height Fundus Units Glucose Ketones Leukocytes Nitrite Labor Signs Protein Cervic Dilation Cervic Effacement Cervic Station Type Weight in lbs Pre/Post Dialysis Refused BP Diastolic BP Location Tested BP Systolic BP Type Fetus Heart Rate Present Fetus Movement Comments Flowsheet Date 06/21/2024 Hernandez Score Blood Edema Fundus Height Fundus Units Glucose Ketones Leukocytes Nitrite Labor Signs Protein Cervic Dilation Cervic Effacement Cervic Station Type Weight in lbs Pre/Post Dialysis Refused 128.169695744797 BP Diastolic BP Location Tested BP Systolic BP Type 74 L arm 112 sitting Fetus Heart Rate Present A 152 Fetus Movement A Yes Comments no complaints, no problems, routine care, no contractions, no vaginal bleeding, no loss of fluid, no cramping Flowsheet Date 07/19/2024 Hernandez Score Blood Edema Fundus Height Fundus Units Glucose Ketones Leukocytes Nitrite Labor Signs Protein Cervic Dilation Cervic Effacement Cervic Station Type Weight in lbs Pre/Post Dialysis Refused Weight 139.39828926609 BP Diastolic BP Location Tested BP Systolic BP Type 73 L arm 106 sitting Fetus Heart Rate Present A 148 Present Fetus Movement A Yes Comments no complaints, no problems, routine care, no contractions, no vaginal bleeding, no loss of fluid, no cramping Flowsheet Date 08/17/2024 Hernandez Score Blood Edema Fundus Height Fundus Units Glucose Ketones Leukocytes Nitrite Labor Signs Protein Cervic Dilation Cervic Effacement Cervic Station Type Weight in lbs Pre/Post Dialysis Refused BP Diastolic BP Location Tested BP Systolic BP Type Fetus Heart Rate Present Fetus Movement Comments Flowsheet Date 08/17/2024 Hernandez Score Blood Edema Fundus Height Fundus Units Glucose Ketones Leukocytes Nitrite Labor Signs Protein Cervic Dilation Cervic Effacement Cervic Station Type Weight in lbs Pre/Post Dialysis Refused BP Diastolic BP Location Tested BP Systolic BP Type Fetus Heart Rate Present Fetus Movement Comments Flowsheet Date 09/10/2024 Hernandez Score Blood Edema Fundus Height Fundus Units Glucose Ketones Leukocytes Nitrite Labor Signs Protein Cervic Dilation Cervic Effacement Cervic Station Type Weight in lbs Pre/Post Dialysis Refused 139.460237855476 BP Diastolic BP Location Tested BP Systolic BP Type 74 L arm 109 sitting Fetus Heart Rate Present A 156 Present Fetus Movement A Yes Comments no complaints, no problems, routine care, no contractions, no vaginal bleeding, no loss of fluid, no cramping Flowsheet Date 09/27/2024 Hernandez Score Blood Edema Fundus Height Fundus Units Glucose Ketones Leukocytes Nitrite Labor Signs Protein Cervic Dilation Cervic Effacement Cervic Station Type Weight in lbs Pre/Post Dialysis Refused BP Diastolic BP Location Tested BP Systolic BP Type Fetus Heart Rate Present Fetus Movement Comments Flowsheet Date 09/27/2024 Hernandez Score Blood Edema Fundus Height Fundus Units Glucose Ketones Leukocytes Nitrite Labor Signs Protein Cervic Dilation Cervic Effacement Cervic Station Type Weight in lbs Pre/Post Dialysis Refused Weight [id number] BP Diastolic BP Location Tested BP Systolic BP Type 73 L arm 111 sitting Fetus Heart Rate Present A 137 Fetus Movement A Yes Comments no complaints, no problems, routine care, no contractions, no vaginal bleeding, no loss of fluid, no cramping Flowsheet Date 10/16/2024 Hernandez Score Blood Edema Fundus Height Fundus Units Glucose Ketones Leukocytes Nitrite Labor Signs Protein Cervic Dilation Cervic Effacement Cervic Station Type Weight in lbs Pre/Post Dialysis Refused Weight [id number] BP Diastolic BP Location Tested BP Systolic BP Type 72 L arm 126 sitting Fetus Heart Rate Present A 160 Present Fetus Movement A Yes Comments no complaints, no problems, routine care, no contractions, no vaginal bleeding, no loss of fluid, no cramping Flowsheet Date 10/24/2024 Hernandez Score Blood Edema Fundus Height Fundus Units Glucose Ketones Leukocytes Nitrite Labor Signs Protein Cervic Dilation Cervic Effacement Cervic Station 2cm 70% -1 Type Weight in lbs Pre/Post Dialysis Refused Weight [id number] BP Diastolic BP Location Tested BP Systolic BP Type 85 L arm 121 sitting Fetus Heart Rate Present A 142 Present Fetus Movement A Yes Comments no complaints, no problems, routine care, no contractions, no vaginal bleeding, no loss of fluid, no cramping Flowsheet Date 10/31/2024 Hernandez Score Blood Edema Fundus Height Fundus Units Glucose Ketones Leukocytes Nitrite Labor Signs Protein Cervic Dilation Cervic Effacement Cervic Station Type Weight in lbs Pre/Post Dialysis Refused BP Diastolic BP Location Tested BP Systolic BP Type Fetus Heart Rate Present Fetus Movement Comments Menstrual History Last Menstrual Date Menses Monthly On Bcp Conception Prior Menses Frequency Hcg Plus Date Menarche Onset Age false Delivery Information Delivery Date Delivery Type Labor Anesthesia Weeks Gestation Incision Type Labor Labor Length Hrs Delivered By Post Complications Tubal Sterilization Discharge Date Comments Discharge Information Feeding Method Contraceptive Method Maternal HG B and HCT Levels
--- OUTSIDE RECORDS SUMMARY | 2024-10-31 22:09 | XMS_ITS | Data Portability ---
Author Organization [facility] Address [address] [place] [address] Assessment Encounter Date Assessment Date Assessment LastModified by Organization Details LastModified Time 09/27/2024 09/27/2024 Patient is ___weeks . Discussed plan. Not available 09/27/2024 12:34:43 10/16/2024 10/16/2024 Patient is ___weeks . Discussed plan. Not available 10/16/2024 09:51:58 10/24/2024 10/24/2024 Patient is ___weeks . Discussed plan. Not available 10/24/2024 14:22:50 Plan of Treatment Reminders Order Date Submit Date Provider Last Modified By Organization Details Last Modified Time Details Appointments INDUCTION 2024 06:30A Caridad KENDRICK MD Not available Not available Not available Lab None recorded. Referral None recorded. Procedures None recorded. Surgeries None recorded. Imaging US, obstetric , follow-up 2024 025 [email or web address] [place], [address], [address], [place], [address], 09/27/2024 22:21:39 Medication Orders None recorded. Patient TargetsNo targets recorded. Patient InstructionsNo instructions recorded. Reason for Referral None Reported. Results Created Date Observation Date Name Description Value Unit Range Abnormal Flag Note LastModifiedBy Organization Detail LastModifiedTime 10/17/1910/16/2024 CBC (HEMO GRAM) WBC 9.0 10'3/ uL 3.5-10 .5 Not Available [facility] (Lab) [address], [place], [address], 10/17/2024 02:40:49 10/17/1910/16/2024 CBC (HEMO GRAM) RBC 4.06 10'6/ uL (based on docume nted legal sex) 3.80-5 .20 Not Available [facility] (Lab) [address], [place], [address], 10/17/2024 02:40:49 10/17/1910/16/2024 CBC (HEMO GRAM) HGB 9.5 g/dL (based on docume nted legal sex) 11.6-1 5.4 low Not Available [facility] (Lab) [address], [place], [address], 10/17/2024 02:40:49 10/17/1910/16/2024 CBC (HEMO GRAM) HCT 30.8 % (based on docume nted legal sex) 34.0-4 5.0 low Not Available [facility] (Lab) [address] [place], [address], 10/17/2024 02:40:49 10/17/1910/16/2024 CBC (HEMO GRAM) MCV 75.9 fL 80.0-9 9.0 low Not Available [facility] (Lab) [address] [place], [address], 10/17/2024 02:40:49 10/17/1910/16/2024 CBC (HEMO GRAM) MCH 23.4 pg 27.0-3 4.0 low Not Available [facility] (Lab) [address] [place], [address], 10/17/2024 02:40:49 10/17/1910/16/2024 CBC (HEMO GRAM) MCHC 30.8 g/dL 32.0-3 5.5 low Not Available [facility] (Lab) [address] [place], [address], 10/17/2024 02:40:49 10/17/19 25 10/16/2024 CBC (HEMO GRAM) RDW 16.9 % 11.0-1 5.0 high Not Available [facility] (Lab) [address], [place], [address], 10/17/2024 02:40:49 10/17/19 25 10/16/2024 CBC (HEMO GRAM) plt 294 10'3/ uL 150-40 0 Not Available [facility] (Lab) [address], [place], [address], 10/17/2024 02:40:49 10/17/19 25 10/16/2024 CBC (HEMO GRAM) MPV 11.9 fL 8.8-12 .1 Not Available [facility] (Lab) [address], [place], [address], 10/17/2024 02:40:49 10/17/1910/16/2024 CBC (HEMO GRAM) NRBC's 0.6 % 0.0 high Not Available [facility] (Lab) [address], [place], [address], 10/17/2024 02:40:49 10/17/1910/16/2024 CBC (HEMO GRAM) absolute NRBCs 0.1 10'3/ uL no refere nce range establ ished Refer ence range s for nonbi nary/ inter sex or unspe cifie d gende r patie nts have not been estab lishe d. Pleas e refer to the follo wing table for range s estab lishe d for cisge nder patie nts and evalu ate in the clini chetna lala xt of the indiv idual patie nt: https ://moni taveras book. nm.or g/gen derx Not Available [facility] (Lab) [address], [place], [address], 10/17/2024 02:40:49 10/17/19 25 10/16/2024 CULTU RE: GROUP B STREP SCREE N, REFLE X SUSCE PTIBI LITY result report SEE RESULT S BELOW Test: Cultu re: Group B Strep , Refle x Susce ptibi lity ([facility]/ [facility] ) Speci men Sourc e: Vagin a/Rec katelynn Speci men Type: Vagin al/Re ctal Speci men Date: 025 1004 Resul t Date: 1403 Resul t Statu s: Final resul t Abnor mal: No Resul ting Lab: [facility] [address] [facility] [address] Tel: CULTU RE ----- ----- ----- --- No Group B strep isola eugene at 2 days (roseanna ctive broth enhan cemen t) Not Available [facility] (Lab) [address], [place], [address], 10/19/2024 15:06:42 09/28/19 25 09/27/2024 US, obste tric, follo w-up No observ ation record ed. [facility] [address], [place], [address], 09/27/2024 12:37:03 09/28/19 25 09/27/2024 US, obste tric, follo w-up No observ ation record ed. FILE[facility] Shukla [address], [place], [address], 10/04/2024 13:35:41 Result Notes None recorded. Problems Name Problem SNOMED Code Status Onset Date Resolution Date Notes Provider Name and Address Organization Details Recorded Time Pregnanc y detectio n examinat ion Completed 201807/10/2020 Encounte r for pregnanc y test, result positive ;Recorde d Elsewher e: No Locat ion: [facility] S ource: EHR Process Control Tech sheron: N Practi ce ID: 0001 Juvenal lable Time: 01:45:00 PM Norma hnanah, [facility] 1 17:06:03 Normal pregnanc y in multigra john [id number] 19074 Completed 201707/10/2020 Encounte r for suprvsn of normal pregnanc y, second trimeste r;Record ed Elsewher e: No [facility]: [facility] Process Control Tech sheron: Riki Pope ce ID: 0001 Juvenal lable Time: 11:00:00 AM Norma hannah, [facility] 1 17:06:00 Pregnanc y, childbir th and puerperi um finding Completed 201707/10/2020 Encntr for suprvsn of normal first preg, second trimeste r;Record ed Elsewher e: No [facility]at [facility] S ource: EHR Process Control Tech sheron: Riki Pope ce ID: 0001 Juvenal lable Time: 02:15:00 PM Norma hannah, [facility] 1 17:06:06 Antenata l screenin g for malforma tion Completed 201907/10/2020 Encounte r for antenata l screenin g for malforma tions;Re corded Elsewher e: No [facility] S ource: EHR Process Control Tech sheron: Riki Pope ce ID: 0001 Juvenal lable Time: 09:00:00 AM Norma hannah, [facility] 1 17:05:43 Uterine size for dates discrepa ncy Completed 201807/10/2020 Uterine size-lynda e discrepa ncy, third trimeste r;Record ed Elsewher e: No Locat ion: [facility] S ource: EHR Process Control Tech sheron: Riki Pope ce ID: 0001 Juvenal lable Time: 10:00:00 AM Norma hannah, [facility] 02/25/202 1 17:06:12 Lochia finding Completed 201807/10/2020 Encounte r for routine postpart um follow-u p;Record ed Elsewher e: No [facility]at [facility] S ource: EHR Process Control Tech sheron: N Michaelti ce ID: 0001 Juvenal lable Time: 03:30:[address] [facility] 17:05:58 Gestatio n period, 11 weeks 38350605 Completed 201707/10/2020 11 weeks gestatio n of pregnanc y;Record ed Elsewher e: No Locat ion: [facility] S ource: EHR Process Control Tech sheron: N Michaelti ce ID: 0001 Juvenal lable Time: 03:00:00 [facility] 17:05:47 Antenata l screenin g Completed 201707/10/2020 Encounte r for other antenata l screenin g follow-u p;Record ed Elsewher e: No Locat ion: [facility] S ource: EHR Process Control Tech sheron: N Michaelti ce ID: 0001 Juvenal lable Time: 10:30:[address] [facility] 17:05:42 Gestatio n period, 37 weeks 59575517 Completed 201807/10/2020 37 weeks gestatio n of pregnanc y;Record ed Elsewher e: No Locat ion: [facility] S ource: EHR Process Control Tech sheron: N Practi ce ID: 0001 Juvenal lable Time: 10:00:[address] [facility] 17:05:52 Gestatio n period, 36 weeks 40462964 Completed 201807/10/2020 36 weeks gestatio n of pregnanc y;Record ed Elsewher e: No [facility]: EHR Process Control Tech sheron: N Michaelti ce ID: 0001 Juvenal lable Time: 08:30:00 AM Norma hannah, [facility] 17:05:50 Rubella screenin g status 662391556 Completed 201707/10/2020 Encounte r for antenata l screenin g, unspecif ied;Tree rded Elsewher e: No Locat ion: [facility] S ource: EHR Process Control Tech sheron: N Practi ce ID: 0001 Juvenal lable Time: 01:00:00 PM Norma hannah, [facility] 17:06:09 Medical examinat ion for suspecte d conditio n Completed 201907/10/2020 Encounte r for suspecte d cervical shorteni ng ruled out;Tree rded Elsewher e: No Locat ion: [facility] S ource: [facility] sheron: N Practi ce ID: 0001 Juvenal lable Time: 02:30:00 PM Norma hannah, [facility] 17:05:59 Pregnanc y, childbir th and puerperi um finding Completed 201707/10/2020 Encntr for suprvsn of normal first preg, first trimeste r;Practi ce ID: 0001 Norma hannah, [facility] 17:06:04 Pregnanc y, childbir th and puerperi um finding Completed 201807/10/2020 Oth pregnanc y related conditio ns, third trimeste r;Practi ce ID: 0001 Norma hannah, [facility] 17:05:45 Gestatio n period, 33 weeks 32426209 Completed 201807/10/2020 33 weeks gestatio n of pregnanc y;Practi ce ID: 0001 Norma hannah, [facility] 17:05:48 Pregnanc y-induce d edema and proteinu riki without hyperten nasrin 341449698 Completed 201807/10/2020 Gestatio nal edema with proteinu riki, unspecif ied trimeste r;Practi ce ID: 0001 Norma hannah, [facility] 17:06:07 Gestatio n period, 35 weeks 73534201 Completed 201807/10/2020 35 weeks gestatio n of pregnanc y;Practi ce ID: 0001 Norma hannah, [facility] 17:05:49 Lacerati on of female perineum Completed 201807/10/2020 First degree perineal lacerati on during delivery ;Practic e ID: 0001 Norma Link [facility], [facility] 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 17:05:55 Single live from singleto n pregnanc y 642098877 Completed 201807/10/2020 Single live ;Pr actice ID: 0001 Norma hannah, [facility] 17:06:11 Gestatio n period, 39 weeks 77581778 Completed 201807/10/2020 39 weeks gestatio n of pregnanc y;Practi ce ID: 0001 Norma hannah, [facility] 17:05:53 Pregnanc y 05631076 Completed 202003/31/2021 Lyndsay hannah, [facility] 5 16:05:03 History of growth retardat ion 9697919840 9108 Completed 2nd preg- Growth 66% on 01/27 start weekly antenata l testing 32wks schedule d [place] hannah, [facility] 1 15:13:32 Cassi burnette user [id number] Completed Discusse d @ 01/15 appt [place] hannah, [facility] 1 15:13:32 Anemia of pregnanc y 23236901 Completed IV iron schd 03/09 - Taking iron QD, tried to do BID- makes her sick [facility] 15:13:32 Noncompl iance with treatmen t 8544861 Completed NS appts here and for iron infusion s [place] hannah, [facility] 1 15:13:32 Pregnanc y 69017407 Completed 202107/22/2022 Lyndsayreniat Whitaker [facility], [facility] 5 16:05:03 Pregnanc y 99123218 Active 2024 Lyndsayrenita Whitaker [facility], [facility] 5 16:05:03 growth restrict ion 69171776 Active RESOLVED Vasile Kendrick MD [address], [place], [address], [facility] 5 15:24:27 Anemia 149420107 Active slofe BID Iron infusion s - order faxed 08/29 Dayana Faulkner [facility], [facility] 5 10:49:02 Anemia 219935672 Active slofe BID Iron infusion s - order faxed 08/29 Dayana Faulkner [facility], [facility] 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 5 13:38:33 Pregnanc y 92539420 Completed 201904/03/2020 Lyndsay Whitaker null, [facility] 5 16:05:03 growth restrict ion 60133622 Completed [facility] Meredith Mane null, [facility] 0 16:31:51 Problem Notes None recorded. Procedures Surgical History Date Name Laterality Status Provider Name and Address Organization Details Recorded Time 09/16/2020 Date of Last Pap Smear completed Norma Nikolay [facility] 07/14/2021 17:52:01 Imaging Results None recorded. [...] oral route every day 08/08 completed Prescrib ed Elsewher e: Yes Loca tion: [facility] odify By: [email or web address] E ncounter DateTime : 12/13/19 01:00:00 PM Not Available Not Available Not Available INFORMATION SECURITY ARCHITECT-PNV-DH A 28 mg iron-1 mg-200 mg capsule take 1 capsule by oral route every day 12/04 completed Prescrib ed Elsewher e: No Locat ion: [facility] Caridad odify By: [email or web address] Encounte r DateTime : 06/08/19 01:30:00 PM Not Available Not Available Not Available Vitals Date Recorded Body height Body mass index (BMI) Body weight Systolic blood pressure Diastolic blood pressure Provider Name and Address Organization Details Last Updated DateTime 09/27/2024 167.64 cm 22.9 kg/m2 59373.12 g 111 mm[Hg] 73 mm[Hg] [facility] 12:35:06 Date Recorded Body height Body mass index (BMI) Body weight Systolic blood pressure Diastolic blood pressure Provider Name and Address Organization Details Last Updated DateTime 10/16/2024 167.64 cm 22.8 kg/m2 37282.52 g 126 mm[Hg] 72 mm[Hg] [facility] 09:52:31 Date Recorded Body height Body mass index (BMI) Body weight Systolic blood pressure Diastolic blood pressure Provider Name and Address Organization Details Last Updated DateTime 10/24/2024 167.64 cm 23.1 kg/m2 03609.71 g 121 mm[Hg] 85 mm[Hg] [facility] 5 14:23:31 Social History Question Answer Notes LastModified by Organizat ion Details LastModified Time Tobacco Smoking Status Former Smoker Norma hannah, [facility] 07/10/2020 17:09:18 If You Are , What Was Your Level Of Alcohol Consumption Prior To ? Occasional [email or web address] Information not available 09/30/2021 Are You Blind Or Do You Have Difficulty Seeing? No [email or web address] Information not available 09/30/2021 What Is Your Level Of Caffeine Consumption? Occasional [email or web address] Information not available 09/30/2021 In The 14 Days Before Symptom Onset, Have You Had Close Contact With A Laboratory-confir med COVID-19 While That Case Was Ill? No [email or web address] Information not available 09/30/2021 In The 14 Days Before Symptom Onset, Have You Had Close Contact With A Person Who Is Under Investigation For COVID-19 While That Person Was Ill? No [email or web address] Information not available 09/30/2021 Have You Been To An Area Known To Be High Risk For COVID-19? No [email or web address] Information not available 09/30/2021 Are You Deaf Or Do You Have Serious Difficulty Hearing? No [email or web address] Information not available 09/30/2021 What Type Of Diet Are You Following? REGULAR [email or web address] Information not available 09/30/2021 Have You Ever Been Counseled For Unhealthy Alcohol Use? No [email or web address] Information not available 09/30/2021 Do You Use Your Seat Belt Or Car Seat Routinely? Yes Information not available 09/30/2021 Do You Have Smoke And Carbon Monoxide Detectors In Your Home? Yes [email or web address] Information not available 09/30/2021 Do You Use Sunscreen Routinely? Yes [email or web address] Information not available 09/30/2021 Has Tobacco Cessation Counseling Been Provided? No [email or web address] Information not available 09/30/2021 Do You Have Difficulty Walking Or Climbing Stairs? No [email or web address] Information not available 09/30/2021 Sex: Unknown Functional Status Question Answer Note LastModified by Organizat ion Details LastModified Time Do you use any illicit or recreational drugs? No [email or web address] Information not available 09/30/2021 Do you or have you ever used any other forms of tobacco or nicotine? No [email or web address] Information not available 09/30/2021 What is your level of alcohol consumption? Occasional [email or web address] Information not available 09/30/2021 Are you able to walk? YESWOREST [email or web address] Information not available 09/30/2021 Are you able to care for yourself? Yes [email or web address] Information n ot available 09/30/2021 Do you have difficulty dressing or bathing? No [email or web address] Information not available 09/30/2021 What is your exercise level? Occasional [email or web address] Information not available 09/30/2021 Mental Status Question Answer Note LastModified by Organization D etails LastModified Time Do you feel stressed (tense, restless, nervous, or anxious, or unable to sleep at night)? [id number] [email or web address] Information not available 09/30/2021 Family History Relationship [...] Maternal Aunt Carcinoma in situ of breast [email or web address] Not available 2024 15:59:57 Medical History Condition Response Allergies (Food, seasonal, environmental ) N Other N Drug/Latex Allergies/Reactions N Blood Transfusion N Breast Cancer N Dermatologic Disorders N Lung Disease N Defects or Inherited Disease N Breast Problem N Gestational Diabetes N Hematologic disorders N Anesthesia Complications N History of STI N Deep Vein Thrombosis N Polycystic ovary syndrome N Anxiety Disorder N Autoimmune disease N Arthritis N Polyps N Infertility N Acid Reflux (GERD) N History of abnormal pap N Cancer N Varicosities N Stroke N Neurologic/Epilepsy N Endometriosis N High Cholesterol N Fibromyalgia N Headaches N Kidney Disease N Heart Problems Y [...] SNOMED-CT Code Diagnosis ICD10 Code Diagnosis Note [id number] Vasile Kendrick MD [facility] [address],[place] [address] 09/21/2019 15:30:15 09/21/2019 16:07:29 Routine care 676943259 Z34.83 [id number] Vasile Kendrick MD [facility] [address],[place] [address] 10/05/2019 15:19:52 10/05/2019 16:48:34 Routine care 879978702 Z34.83 [id number] Vasile Kendrick MD [facility] [address],[place] [address] 10/12/2019 14:08:19 10/12/2019 14:53:36 Routine care 114237717 Z34.83 [id number] [facility] [address],[place] [address] 07/14/2020 13:55:51 07/16/2020 16:26:24 [id number] Vasile Kendrick MD [facility] [address],[place] [address] 07/14/2020 13:56:07 07/14/2020 15:30:23 Uncertain viability of 535965572 O36.80X0 Z3A.01 [id number] Vasile Kendrick MD [facility] [address] [place] [address] 07/31/2020 14:07:59 07/31/2020 14:46:33 Uncertain viability of 610160578 O36.80X0 Z3A.01 05561 [facility] [address],[place] [address] 09/16/2020 13:40:39 09/16/2020 15:11:37 Gynecologic examination 20267578 Z01.419 test positive 337565324 Z32.01 Risk factors addressed: Tobacco Cessation, Safe Sexual Practices, environmen nancy, work hazards, travel restrictio ns, seat belt use. Eat a health well balanced diet, avoid alcohol, tobacco, and street drugs. Engage in daily low impact exercise, avoid temperatur e extremes, and cat, rodent, and bird feces. Avoid travel to areas where zika virus is a concern. Offered cf/sma/nip t. Pt desires all three. Will draw today. Handouts given and discussed with patient. Childbirth classes recommende d. New OB sheet given. If previous , counseling . Pt verbalizes that she understand s the importance of above instructio ns. All questions were answered. Patient reminded to have annual well woman examinatio n and address preventati ve healthcare . screening 2437 [address]197 Z36.89 Genetic in vestigation procedure 16966171 Z31.430 Routine an tenatal care 744995743 Z34.90 [id number] Vasile Kendrick MD [facility] [address],[place] [address] 09/16/2020 13:40:19 09/16/2020 14:30:13 screening 849219821 Z36.82 [id number] Vasile Kendrick MD [facility] [address],[place] [address] 09/29/2020 15:52:54 10/01/2020 13:53:44 [id number] Vasile Kendrick MD [facility] [address],[place] [address] 09/29/2020 15:53:15 09/29/2020 22:26:16 [id number] Latosha Deluna MD [facility] [address],[place] [address] 10/22/2020 12:18:06 10/22/2020 14:07:36 Routine care 608636803 Z34.92 Anemia of 2734 2004 O99.019 History of growth retardation 5667473157 9108 Z87.59 Marijuana user 248102418 F12.90 Candidiasis of vagina 72 475704 B37.3 [id number] MD Sravani Pérez [address],[place] [address] 11/04/2020 14:06:59 11/04/2020 15:14:55 screening for malformation 067242536 Z36.3 11578 Indu Tamez CNM [facility] [address],[place] [address] 11/10/2020 17:01:58 11/10/2020 18:00:44 Routine care 839997106 Z34.90 [id number] Indu Tamez CNM [facility] [address],[place] [address] 12/09/2020 14:18:02 12/11/2020 14:14:28 Routine care 925803971 Z34.90 [id number] Indu Tamez CNM [facility] [address],[place] [address] 01/15/2021 14:25:34 01/15/2021 16:25:29 Routine care 937106844 Z34.90 [id number] Vasile Kendrick MD [facility] [address],[place] [address] 01/27/2021 17:03:09 01/27/2021 18:03:47 Medical examination for suspected condition 406189616 Z03.74 [id number] MD Sravani Pérez [address],[place] [address] 01/29/2021 14:15:48 08/18/2021 15:51:00 [id number] MD Sravani Pérez [address],[place] [address] 01/29/2021 14:16:18 01/29/2021 15:08:20 Routine care 107874289 Z34.83 [id number] MD Sravani Pérez [address],[place] [address] 02/02/2021 09:54:10 02/02/2021 11:19:59 condition affecting obstetrical care of mother 397888069 O36.8330 Z3A.31 [id number] MD Sravani Pérez [address],[place] [address] 02/02/2021 09:54:28 02/02/2021 19:26:32 [id number] MD Sravani Pérez [address],[place] [address] 02/02/2021 09:54:57 02/02/2021 11:15:02 History of growth retardation 1427089692 9108 Z87.59 [id number] MD Sravani Potts [address],[place] [address] 02/09/2021 14:46:59 02/09/2021 15:51:14 Maternal drug exposure 92960739 O99.323 O09.293 Z3A.34 [id number] MD Sravani Potts [address],[place] [address] 02/09/2021 14:47:25 02/09/2021 17:02:16 Routine care 785600539 Z34.92 Anemia of 2734 2003 O99.019 History of growth retardation 8398763599 9108 Z87.59 Marijuana user 308020895 F12.90 Noncomplia nce with treatment 0438789 Z91.19 [id number] MD Francesca [place] [address],[place] [address] 02/09/2021 15:23:54 02/09/2021 17:47:38 Past history of growth restriction 405837765 Z87.59 [id number] MD Sravani Pérez [address],[place] [address] 02/16/2021 14:56:55 02/16/2021 15:57:03 History of growth retardation 1294689465 9108 Z87.59 [id number] MD Sravani Pérez [address],[place] [address] 02/16/2021 14:57:17 02/16/2021 16:30:22 condition affecting obstetrical care of mother 662134847 Z91.19 O99.323 O99.019 Z3A.35 [id number] MD Sravani Pérez [address],[place] [address] 02/16/2021 14:57:31 02/16/2021 18:29:55 Routine care 853758090 Z34.83 [id number] MD Sravani Pérez [address],[place] [address] 02/23/2021 15:00:55 02/23/2021 16:13:06 History of growth retardation 7585590184 9108 Z87.59 [id number] MD Sravani [facility] [address],[place] [address] 02/23/2021 15:01:49 02/23/2021 16:11:52 Anemia of 81360897 O99.019 O99.323 Z91.19 Z3A.36 [id number] Vasile Kendrick MD [facility] [address],[place] [address] 02/23/2021 15:02:02 02/24/2021 10:36:51 Routine care [id number] Z34.83 [id number] MD Sravani Pérez [address],[place] [address] 03/02/2021 14:38:07 03/02/2021 16:37:21 History of growth retardation 9298454029 9108 Z87.59 [id number] MD Sravani Pérez [address],[place] [address] 03/02/2021 14:40:57 03/02/2021 17:23:00 condition affecting obstetrical care of mother 215692543 Z91.19 O99.323 O99.019 Z3A.37 [id number] MD Sravani Pérez [address],[place] [address] 03/02/2021 14:41:39 03/02/2021 17:58:47 Routine care 524963452 Z34.83 [id number] Vasile Kendrick MD [facility] [address],[place] [address] 1 03/09/2021 14:50:24 03/09/2021 16:05:11 History of growth retardation 4293596803 9108 Z87.59 [id number] Vasile Kendrick MD [facility] [address],[place] [address] 03/09/2021 14:50:41 03/09/2021 16:54:54 Anemia during - baby not yet delivered 020707898 O99.019 Z3A.38 [id number] Vasile Kendrick MD [facility] [address],[place] [address] 03/09/2021 14:50:52 03/09/2021 16:55:08 Routine care 463687807 Z34.83 [id number] Vasile Kendrick MD [facility] [address],[place] [address] 1 09/30/2021 14:09:46 09/30/2021 14:31:10 [id number] [facility] [address],[place] [address] 09/30/2021 14:35:07 09/30/2021 15:40:54 Amenorrhea 80873326 N91.2 Nausea and vomiting 1693 1999 R11.2 [id number] Bouchra Chan CNM [facility] [address],[place] [address] 11/27/2021 10:26:42 11/27/2021 12:15:55 Routine care 058516198 Z34.92 [id number] Vasile Kendrick MD [facility] [address],[place] [address] 1 11/27/2021 10:28:35 11/30/2021 14:36:07 screening 945049361 Z36.3 [id number] Vasile Kendrick MD [facility] [address],[place] [address] 12/25/2021 10:00:35 12/25/2021 11:01:28 Marginal insertion of umbilical cord 37640071 O43.129 Z3A.23 [id number] Bouchra Chan [facility] [address],[place] [address] 12/25/2021 10:01:08 12/25/2021 11:38:01 Routine care 874631481 Z34.92 [id number] Vasile Kendrick MD [facility] [address],[place] [address] 1 01/21/2022 11:24:41 01/21/2022 12:04:08 Marginal insertion of umbilical cord 13610632 O43.129 Z3A.27 [id number] MD Sravani Pérez [address],[place] [address] 1 01/21/2022 11:25:54 01/21/2022 12:34:46 Routine care 428197581 Z34.83 [id number] Vasile Kendrick MD [facility] [address],[place] [address] 02/04/2022 13:52:34 02/04/2022 15:06:27 Routine care 915573748 Z34.83 [id number] MD Sravani Pérez [address],[place] [address] 02/19/2022 14:08:47 02/19/2022 14:53:03 Routine care 545902453 Z34.83 [id number] MD Sravani Pérez [address],[place] [address] 1 03/04/2022 14:18:10 03/04/2022 15:19:45 Routine care 671416743 Z34.83 [id number] MD Sravani Pérez [address],[place] [address] 1 03/18/2022 15:19:59 03/18/2022 16:39:57 Routine care 690883781 Z34.83 [id number] MD Sravani Pérez [address],[place] [address] 1 03/23/2022 10:53:44 03/23/2022 14:54:17 Marginal insertion of umbilical cord 50155977 O43.129 Z3A.35 [id number] MD Sravani Pérez [address],[place] [address] 03/23/2022 10:54:28 03/23/2022 18:12:43 Routine care 089424297 Z34.83 [id number] MD Sravani Pérez [address],[place] [address] 03/29/2022 16:30:48 03/29/2022 17:45:49 Routine care 494958107 Z34.83 [id number] MD Sravani Pérez [address],[place] [address] 1 04/06/2022 12:29:07 04/07/2022 09:45:45 Routine care 988574180 Z34.83 [id number] MD Sravani Pérez [address],[place] [address] 03/20/2024 09:26:00 03/20/2024 09:51:54 screening 280414938 Z36.87 Z3A.01 [id number] MD Sravani AREVALO [address],[place] [address] 03/30/2024 14:38:53 03/30/2024 18:14:33 [id number] MD Sravani Pérez [address],[place] [address] 1 05/24/2024 15:08:53 05/24/2024 15:35:27 Insufficient care 1457824495 109 Z3A.15 [id number] MD Sravani Pérez [address],[place] [address] 05/24/2024 15:09:23 05/24/2024 16:37:08 Routine care 906654503 Z34.83 [id number] MD Sravani Pérez [address],[place] [address] 06/21/2024 15:59:39 06/21/2024 17:18:19 screening for malformation 207355430 Z36.3 Z3A.20 [id number] MD Sravani Pérez [address],[place] [address] 06/21/2024 15:59:52 06/22/2024 14:12:58 Routine care 522277082 Z34.83 [id number] MD Sravani Pérez [address],[place] [address] 07/19/2024 16:03:57 07/19/2024 16:48:42 Routine care 596066309 Z34.83 [id number] MD Sravani Pérez [address],[place] [address] 08/17/2024 15:29:05 08/20/2024 07:55:10 Uterine size for dates discrepancy 211277318 O26.843 Z3A.28 [id number] MD Sravani Pérez [address],[place] [address] 08/17/2024 15:29:33 08/18/2024 13:19:24 [id number] MD Sravani Pérez [address],[place] [address] 09/10/2024 14:46:23 09/10/2024 15:31:47 care status 441128963 Z34.83 [id number] MD Sravani Pérez [address],[place] [address] 09/27/2024 11:26:10 09/27/2024 12:21:09 care status 167060893 O36.5930 Z3A.34 [id number] Vasile Kendrick MD [facility] [address],[place] [address] 09/27/2024 11:26:30 09/27/2024 12:54:19 care status 826301341 Z34.83 [id number] Vasile Kendrick MD [facility] [address],[place] [address] 10/16/2024 09:38:14 10/18/2024 11:18:10 care status 913901734 Z34.83 [id number] Vasile Kendrick MD [facility] [address],[place] [address] 10/24/2024 13:46:49 10/24/2024 14:42:46 care status 257729992 Z34.83 [id number] Vasile Kendrick MD [facility] [address],[place] [address] 1 10/31/2024 08:40:31 10/31/2024 17:21:58 Health Concerns Section Related Observation LastModified by Organization Detai ls LastModified Time None Recorded Concern Status LastModified by Organization Details LastModified Time None Recorded Advance Directives Directive None Recorded Payers Insurance Date Sequence Insurance Name Policy Number Policy Baldwin Covered Member ID Baldwin Member ID Guarantor Name 06/21/2024 1 [facility] PRIOR TO 11/13/2020 (MEDICAID REPLACEMENT - HMO) Topher Chauhan [id number] Topher Greene 10/28/2024 1 [facility] ON OR AFTER 11/13/20 (MEDICAID REPLACEMENT - HMO) Topher Chauhan [id number] Topher Greene OBGyn Episode Ob Episode Information Episode Created Date Number of Fetuses Patient Bloodtype Patient rh Status Prepregnancy Weight lbs Domestic Partner Domestic Partner Phone Father Name Industrial Custodian Status 09/21/19 20 1 CLOSED Fetus Data First Name Last Name Admitted to NICU Weight (g) Sex Living Outcome Pediatric Complications Fetus ID Race Codes Race Delivery Type 3486.76 1704 F Full Term 1298 Vaginal Delivery Jakob Calculation Initial Jakob Date Initial Exam Date Initial Exam Provider Initial Ultrasound Date Last Menstrual Period Date Ultra Sound Weeks Gestation 0 Eighteen To Twenty Week Jakob Update Ultra Sound Date Fundal Height At Umbil Quickening Date Ultra Sound Latest Weeks Gestation Final Jakob Confirmed By Final Jakob Confirmed Date Final Jakob Date Ultra Sound Latest Days Gestation 0 0 Menstrual History Last Menstrual Date Menses Monthly On Bcp Conception Prior Menses Frequency Hcg Plus Date Menarche Onset Age Delivery Information Delivery Date Delivery Type Labor Anesthesia Weeks Gestation Incision Type Labor Labor Length Hrs Delivered By Post Complications Tubal Sterilization Discharge Date Comments 9 39 Discharge Information Feeding Method Contraceptive Method Maternal HG B and HCT Levels Ob Episode Information Episode Created Date Number of Fetuses Patient Bloodtype Patient rh Status Prepregnancy Weight lbs Domestic Partner Domestic Partner Phone Father Name Industrial Custodian Status 09/21/19 20 1 154 CLOSED Fetus Data First Name Last Name Admitted to NICU Weight (g) Sex Living Outcome Pediatric Complications Fetus ID Race Codes Race Delivery Type 2438.05 7 F true Full Term [email or web address] [id number] Vaginal Delivery Problems Problem Notes Problem Name Start Date End Date Resolution Snomed Code Not e growth restriction 13548 007 MFM Jakob Calculation Initial Jakob Date Initial Exam Date Initial Exam Provider Initial Ultrasound Date Last Menstrual Period Date Ultra Sound Weeks Gestation 10/31/2019 09/21/2019 03/08/2019 6 Eighteen To Twenty Week Jakob Update Ultra Sound Date Fundal Height At Umbil Quickening Date Ultra Sound Latest Weeks Gestation Final Jakob Confirmed By Final Jakob Confirmed Date Final Jakob Date Ultra Sound Latest Days Gestation 0 [email or web address] 09/21/2019 10/31/19 20 0 Pre-tone Flowsheet Flowsheet Date 09/21/2019 Hernandez Score Blood Edema Fundus Height Fundus Units Glucose Ketones Leukocytes Nitrite Labor Signs Protein Cervic Dilation Cervic Effacement Cervic Station 31 trace Type Weight in lbs Pre/Post Dialysis Refused Weight 151.542901674965 BP Diastolic BP Location Tested BP Systolic BP Type 75 117 Fetus Heart Rate Present A 135 Fetus Movement A Yes Comments Flowsheet Date 10/05/2019 Hernandez Score Blood Edema Fundus Height Fundus Units Glucose Ketones Leukocytes Nitrite Labor Signs Protein Cervic Dilation Cervic Effacement Cervic Station 36 trace 2cm 60% -2 Type Weight in lbs Pre/Post Dialysis Refused Weight 151.706051145267 BP Diastolic BP Location Tested BP Systolic BP Type 78 128 Fetus Heart Rate Present A 150 Fetus Movement A Yes Comments This patient is a 19-year-ol d multipara. She has a very good exam. The baby is low and the cervix is open and thin. She is in the 9th percentile for growth a couple of weeks back. We are talking about induction at 39 weeks. This is 23 October. She has another growth ultrasound with MFM coming up. Flowsheet Date 10/12/2019 Hernandez Score Blood Edema Fundus Height Fundus Units Glucose Ketones Leukocytes Nitrite Labor Signs Protein Cervic Dilation Cervic Effacement Cervic Station 36 trace 3cm 50% -3 Type Weight in lbs Pre/Post Dialysis Refused Weight 150.500155811162 BP Diastolic BP Location Tested BP Systolic BP Type 73 R arm 121 sitting Fetus Heart Rate Present A 150 Fetus Movement Comments Glucose negative. bc, rma. S SE - no Gross fluid, Menstrual History Last Menstrual Date Menses Monthly On Bcp Conception Prior Menses Frequency Hcg Plus Date Menarche Onset Age Genetic Screening And Infection History Question Response Note Mental Retardation/Autism false Patient's Age Will Be 35 Years Or Older At Estim ated Date of Delivery false Thalassemia (Stateless, Congolese, Mediterranean, Or Background): MCV < 80 false Neural Tube Defect (Meningomyelocele, Spina Bifi da, Or Anencephaly) false Congenital Heart Defect false Down Syndrome false Dev-Sachs (eg, Advent, Cajun, English-[place]) f alse Ileana Disease false Sickle Cell Disease Or Trait () false Hemophilia Or Other Blood Disorders false Muscular Dystrophy false Cystic Fibrosis false Scurry's Chorea false Intellectual Disability/Autism false If Yes, Was Person Tested For Fragile X? false Other Inherited Genetic Or Chromosomal Disorder false Maternal Metabolic Disorder (eg, Type 1 Diabetes , PKU) false Patient Or Baby's Father Had A Child With Defects Not Listed Above false Recurrent Loss, Or A Stillbirth false Medications (including Suppl ements, Vitamins, Herbs, OTC Drugs), Illicit/Recreational Drugs, Alcohol false If Yes, Agent(s) And Strength/Dosage false Any Other Genetic History false Live With Someone With TB Or Exposed To TB false Patient Or Partner Has History Of Genital Herpes false Rash Or Viral Illness Since Last Menstrual Perio d false History Of STD, Gonorrhea, Chlamydia, HPV, Syphi lis false Other Infection History false History of HIV false History of Hepatitis false Prior GBS-infected child false Hemoglobinopathy Or Carrier false Other Structural Defect false Recent Travel History Outside of Country false Delivery Information Delivery Date Delivery Type Labor Anesthesia Weeks Gestation Incision Type Labor Labor Length Hrs Delivered By Post Complications Tubal Sterilization Discharge Date Comments 0 [facility] 37.6 false [email or web address] SGA Discharge Information Feeding Method Contraceptive Method Maternal HG B and HCT Levels Ob Episode Information Episode Created Date Number of Fetuses Patient Bloodtype Patient rh Status Prepregnancy Weight lbs Domestic Partner Domestic Partner Phone Father Name Industrial Custodian Status 09/21/19 20 1 CLOSED Fetus Data First Name Last Name Admitted to NICU Weight (g) Sex Living Outcome Pediatric Complications Fetus ID Race Codes Race Delivery Type , Spontane ous 1299 Jakob Calculation Initial Jakob Date Initial Exam Date Initial Exam Provider Initial Ultrasound Date Last Menstrual Period Date Ultra Sound Weeks Gestation 0 Eighteen To Twenty Week Jakob Update Ultra Sound Date Fundal Height At Umbil Quickening Date Ultra Sound Latest Weeks Gestation Final Jakob Confirmed By Final Jakob Confirmed Date Final Jakob Date Ultra Sound Latest Days Gestation 0 0 Menstrual History Last Menstrual Date Menses Monthly On Bcp Conception Prior Menses Frequency Hcg Plus Date Menarche Onset Age Delivery Information Delivery Date Delivery Type Labor Anesthesia Weeks Gestation Incision Type Labor Labor Length Hrs Delivered By Post Complications Tubal Sterilization Discharge Date Comments 8 Discharge Information Feeding Method Contraceptive Method Maternal HG B and HCT Levels Ob Episode Information Episode Created Date Number of Fetuses Patient Bloodtype Patient rh Status Prepregnancy Weight lbs Domestic Partner Domestic Partner Phone Father Name Industrial Custodian Status 10/30/19 20 1 DELETED Jakob Calculation Initial Jakob Date Initial Exam Date Initial Exam Provider Initial Ultrasound Date Last Menstrual Period Date Ultra Sound Weeks Gestation 0 Eighteen To Twenty Week Jakob Update Ultra Sound Date Fundal Height At Umbil Quickening Date Ultra Sound Latest Weeks Gestation Final Jakob Confirmed By Final Jakob Confirmed Date Final Jakob Date Ultra Sound Latest Days Gestation 0 0 Menstrual History Last Menstrual Date Menses Monthly On Bcp Conception Prior Menses Frequency Hcg Plus Date Menarche Onset Age Delivery Information Delivery Date Delivery Type Labor Anesthesia Weeks Gestation Incision Type Labor Labor Length Hrs Delivered By Post Complications Tubal Sterilization Discharge Date Comments 0 37.6 SMA Discharge Information Feeding Method Contraceptive Method Maternal HG B and HCT Levels Ob Episode Information Episode Created Date Number of Fetuses Patient Bloodtype Patient rh Status Prepregnancy Weight lbs Domestic Partner Domestic Partner Phone Father Name Industrial Custodian Status 10/23/19 21 1 O Positive 129 CLOSED Fetus Data First Name Last Name Admitted to NICU Weight (g) Sex Living Outcome Pediatric Complications Fetus ID Race Codes Race Delivery Type Kathy burnette 3373.59 05 F true Full Term meconium [id number] Vaginal Delivery Problems Problem Notes IV iron infusion schd on @ 12 Problem Name Start Date End Date Resolution Snomed Code Not e Marijuana user [id number] Discu ssed @ 01/15 appt Anemia of 65820264 IV iron schd 03/09 - Taking iron QD, tried to do BID- makes her sick History of growth retardation 80201796156430 2nd pre g- Growth 66% on 01/27start weekly testing 32wks scheduled Noncompliance with treatment 4373519 NS appts here a nd for iron infusions Jakob Calculation Initial Jakob Date Initial Exam Date Initial Exam Provider Initial Ultrasound Date Last Menstrual Period Date Ultra Sound Weeks Gestation 03/22/2021 10/22/2020 07/31/2020 6 Eighteen To Twenty Week Jakob Update Ultra Sound Date Fundal Height At Umbil Quickening Date Ultra Sound Latest Weeks Gestation Final Jakob Confirmed By Final Jakob Confirmed Date Final Jakob Date Ultra Sound Latest Days Gestation 0 10/22/2020 03/22/20 21 0 Pre- Flowsheet Flowsheet Date 10/22/2020 Hernandez Score Blood Edema Fundus Height Fundus Units Glucose Ketones Leukocytes Nitrite Labor Signs Protein Cervic Dilation Cervic Effacement Cervic Station neg none trace Type Weight in lbs Pre/Post Dialysis Refused Weight 131.620008337647 BP Diastolic BP Location Tested BP Systolic BP Type 75 123 Fetus Heart Rate Present A 140 Fetus Movement A Yes Comments Topher is a 20yo at 18.3 for care. Last complicated by IUGR. Will do serial growth US this . Pap had yeast- diflucan. Anemic, already taking iron. Consider iron infusions if not improvin- pt has a long history of anemia. UDS pos for MJ- discuss next visit. Labs done, NIPT low risk. Flowsheet Date 11/04/2020 Hernandez Score Blood Edema Fundus Height Fundus Units Glucose Ketones Leukocytes Nitrite Labor Signs Protein Cervic Dilation Cervic Effacement Cervic Station Type Weight in lbs Pre/Post Dialysis Refused BP Diastolic BP Location Tested BP Systolic BP Type Fetus Heart Rate Present Fetus Movement Comments Flowsheet Date 11/10/2020 Hernandez Score Blood Edema Fundus Height Fundus Units Glucose Ketones Leukocytes Nitrite Labor Signs Protein Cervic Dilation Cervic Effacement Cervic Station 21 trace Type Weight in lbs Pre/Post Dialysis Refused Weight 133.756865425055 BP Diastolic BP Location Tested BP Systolic BP Type 70 110 Fetus Heart Rate Present A 144 Fetus Movement A Yes Comments Doing well. Will have cbc an d lead drawn today. Pt is taking iron and eating iron rich foods. Will await results. Flowsheet Date 12/09/2020 Hernandez Score Blood Edema Fundus Height Fundus Units Glucose Ketones Leukocytes Nitrite Labor Signs Protein Cervic Dilation Cervic Effacement Cervic Station trace 25 Type Weight in lbs Pre/Post Dialysis Refused Weight 139.969135290456 BP Diastolic BP Location Tested BP Systolic BP Type 73 R arm 118 sitting Fetus Heart Rate Present A 142 Fetus Movement A Yes Comments Doing well. Pt missed iron i nfusion appt. She will call to reschedule. Flowsheet Date 01/15/2021 Hernandez Score Blood Edema Fundus Height Fundus Units Glucose Ketones Leukocytes Nitrite Labor Signs Protein Cervic Dilation Cervic Effacement Cervic Station none 30 Type Weight in lbs Pre/Post Dialysis Refused Weight 142.988747590933 BP Diastolic BP Location Tested BP Systolic BP Type 77 120 Fetus Heart Rate Present A 139 Fetus Movement A Yes Comments Doing well. Going for infusi on today. Pt denies use of mj since early . Did discussed risks and pt does not plan to restart. 1 hour gtt today. Growth u/s to be scheduled for history of IUGR. Also discussed acog recommendation for covid vaccine in .Pt left after visit with provider, didn't stay for glucose blood work. Called pt she is aware she will have to drink the glucose drink again. She will do this at her next apt. ,RMA Flowsheet Date 01/27/2021 Hernandez Score Blood Edema Fundus Height Fundus Units Glucose Ketones Leukocytes Nitrite Labor Signs Protein Cervic Dilation Cervic Effacement Cervic Station Type Weight in lbs Pre/Post Dialysis Refused BP Diastolic BP Location Tested BP Systolic BP Type Fetus Heart Rate Present Fetus Movement Comments Flowsheet Date 01/29/2021 Hernandez Score Blood Edema Fundus Height Fundus Units Glucose Ketones Leukocytes Nitrite Labor Signs Protein Cervic Dilation Cervic Effacement Cervic Station Type Weight in lbs Pre/Post Dialysis Refused BP Diastolic BP Location Tested BP Systolic BP Type Fetus Heart Rate Present Fetus Movement Comments Flowsheet Date 01/29/2021 Hernandez Score Blood Edema Fundus Height Fundus Units Glucose Ketones Leukocytes Nitrite Labor Signs Protein Cervic Dilation Cervic Effacement Cervic Station 33 Type Weight in lbs Pre/Post Dialysis Refused Weight 146.126596402750 BP Diastolic BP Location Tested BP Systolic BP Type 77 R arm 115 sitting Fetus Heart Rate Present A 145 Fetus Movement A Yes Comments severe anemia, history of IU GR, to try to get IV iron infusion work out again with her. She has been given instructions a couple of times and not not shown. To start NSTs on 4 days. No complaints, repeat ultrasound recently showed good growth and fluid. Flowsheet Date 02/02/2021 Hernandez Score Blood Edema Fundus Height Fundus Units Glucose Ketones Leukocytes Nitrite Labor Signs Protein Cervic Dilation Cervic Effacement Cervic Station Type Weight in lbs Pre/Post Dialysis Refused BP Diastolic BP Location Tested BP Systolic BP Type Fetus Heart Rate Present Fetus Movement Comments Flowsheet Date 02/02/2021 Hernandez Score Blood Edema Fundus Height Fundus Units Glucose Ketones Leukocytes Nitrite Labor Signs Protein Cervic Dilation Cervic Effacement Cervic Station Type Weight in lbs Pre/Post Dialysis Refused BP Diastolic BP Location Tested BP Systolic BP Type Fetus Heart Rate Present Fetus Movement Comments Flowsheet Date 02/02/2021 Hernandez Score Blood Edema Fundus Height Fundus Units Glucose Ketones Leukocytes Nitrite Labor Signs Protein Cervic Dilation Cervic Effacement Cervic Station Type Weight in lbs Pre/Post Dialysis Refused BP Diastolic BP Location Tested BP Systolic BP Type Fetus Heart Rate Present Fetus Movement Comments Flowsheet Date 02/09/2021 Hernandez Score Blood Edema Fundus Height Fundus Units Glucose Ketones Leukocytes Nitrite Labor Signs Protein Cervic Dilation Cervic Effacement Cervic Station Type Weight in lbs Pre/Post Dialysis Refused BP Diastolic BP Location Tested BP Systolic BP Type Fetus Heart Rate Present Fetus Movement Comments Flowsheet Date 02/09/2021 Hernandez Score Blood Edema Fundus Height Fundus Units Glucose Ketones Leukocytes Nitrite Labor Signs Protein Cervic Dilation Cervic Effacement Cervic Station Type Weight in lbs Pre/Post Dialysis Refused BP Diastolic BP Location Tested BP Systolic BP Type Fetus Heart Rate Present Fetus Movement Comments Flowsheet Date 02/09/2021 Hernandez Score Blood Edema Fundus Height Fundus Units Glucose Ketones Leukocytes Nitrite Labor Signs Protein Cervic Dilation Cervic Effacement Cervic Station neg none trace Type Weight in lbs Pre/Post Dialysis Refused Weight 145.3257558723 BP Diastolic BP Location Tested BP Systolic BP Type 71 109 Fetus Heart Rate Present A 130 Fetus Movement A Yes Comments Doing fine. Had trouble reac william right people to schedule IV iron. Asking if since this Hgb was better (9.3 from 8.2) if she can do oral iron instead. As long as she is compliant, I think this is ok. We discussed that with Hgb in 8-9 range predelivery, there is a very good chance she could need blood transufsion after delivery. BPP 12/21, NSt reactive Discussed and encouraged flu shot, Tdap, and COVID vaccines. UDS and UC today. Repeat CBC at 36-37 weeks to assess for need for IV iron before delivery. Flowsheet Date 02/16/2021 Hernandez Score Blood Edema Fundus Height Fundus Units Glucose Ketones Leukocytes Nitrite Labor Signs Protein Cervic Dilation Cervic Effacement Cervic Station Type Weight in lbs Pre/Post Dialysis Refused BP Diastolic BP Location Tested BP Systolic BP Type Fetus Heart Rate Present Fetus Movement Comments Flowsheet Date 02/16/2021 Hernandez Score Blood Edema Fundus Height Fundus Units Glucose Ketones Leukocytes Nitrite Labor Signs Protein Cervic Dilation Cervic Effacement Cervic Station Type Weight in lbs Pre/Post Dialysis Refused BP Diastolic BP Location Tested BP Systolic BP Type Fetus Heart Rate Present Fetus Movement Comments Flowsheet Date 02/16/2021 Hernandez Score Blood Edema Fundus Height Fundus Units Glucose Ketones Leukocytes Nitrite Labor Signs Protein Cervic Dilation Cervic Effacement Cervic Station 35 trace 1cm 50% -3 Type Weight in lbs Pre/Post Dialysis Refused Weight 141.334492302290 BP Diastolic BP Location Tested BP Systolic BP Type 72 R arm 125 sitting Fetus Heart Rate Present A 145 Fetus Movement A Yes Comments gbs done, no problems Flowsheet Date 02/23/2021 Hernandez Score Blood Edema Fundus Height Fundus Units Glucose Ketones Leukocytes Nitrite Labor Signs Protein Cervic Dilation Cervic Effacement Cervic Station Type Weight in lbs Pre/Post Dialysis Refused BP Diastolic BP Location Tested BP Systolic BP Type Fetus Heart Rate Present Fetus Movement Comments Flowsheet Date 02/23/2021 Hernandez Score Blood Edema Fundus Height Fundus Units Glucose Ketones Leukocytes Nitrite Labor Signs Protein Cervic Dilation Cervic Effacement Cervic Station Type Weight in lbs Pre/Post Dialysis Refused BP Diastolic BP Location Tested BP Systolic BP Type Fetus Heart Rate Present Fetus Movement Comments Flowsheet Date 02/23/2021 Hernandez Score Blood Edema Fundus Height Fundus Units Glucose Ketones Leukocytes Nitrite Labor Signs Protein Cervic Dilation Cervic Effacement Cervic Station 36 Type Weight in lbs Pre/Post Dialysis Refused Weight 141.681204402286 BP Diastolic BP Location Tested BP Systolic BP Type 73 R arm 118 sitting Fetus Heart Rate Present A 144 Fetus Movement Comments normal Flowsheet Date 03/02/2021 Hernandez Score Blood Edema Fundus Height Fundus Units Glucose Ketones Leukocytes Nitrite Labor Signs Protein Cervic Dilation Cervic Effacement Cervic Station Type Weight in lbs Pre/Post Dialysis Refused BP Diastolic BP Location Tested BP Systolic BP Type Fetus Heart Rate Present Fetus Movement Comments Flowsheet Date 03/02/2021 Hernandez Score Blood Edema Fundus Height Fundus Units Glucose Ketones Leukocytes Nitrite Labor Signs Protein Cervic Dilation Cervic Effacement Cervic Station Type Weight in lbs Pre/Post Dialysis Refused BP Diastolic BP Location Tested BP Systolic BP Type Fetus Heart Rate Present Fetus Movement Comments Flowsheet Date 03/02/2021 Hernandez Score Blood Edema Fundus Height Fundus Units Glucose Ketones Leukocytes Nitrite Labor Signs Protein Cervic Dilation Cervic Effacement Cervic Station 37 Type Weight in lbs Pre/Post Dialysis Refused Weight 140.519558953261 BP Diastolic BP Location Tested BP Systolic BP Type 83 R arm 130 sitting Fetus Heart Rate Present A 145 Fetus Movement Comments no problems, reactive NST Flowsheet Date 03/09/2021 Hernandez Score Blood Edema Fundus Height Fundus Units Glucose Ketones Leukocytes Nitrite Labor Signs Protein Cervic Dilation Cervic Effacement Cervic Station Type Weight in lbs Pre/Post Dialysis Refused BP Diastolic BP Location Tested BP Systolic BP Type Fetus Heart Rate Present Fetus Movement Comments Flowsheet Date 03/09/2021 Hernandez Score Blood Edema Fundus Height Fundus Units Glucose Ketones Leukocytes Nitrite Labor Signs Protein Cervic Dilation Cervic Effacement Cervic Station Type Weight in lbs Pre/Post Dialysis Refused BP Diastolic BP Location Tested BP Systolic BP Type Fetus Heart Rate Present Fetus Movement Comments Flowsheet Date 03/09/2021 Hernandez Score Blood Edema Fundus Height Fundus Units Glucose Ketones Leukocytes Nitrite Labor Signs Protein Cervic Dilation Cervic Effacement Cervic Station trace 3cm 60% -2 Type Weight in lbs Pre/Post Dialysis Refused Weight 140.752433895623 BP Diastolic BP Location Tested BP Systolic BP Type 81 R arm 125 sitting Fetus Heart Rate Present Fetus Movement A Yes Comments BPP 8/, scheduled for induc tion of labor in 1 week. , very favorable cervix. Menstrual History Last Menstrual Date Menses Monthly On Bcp Conception Prior Menses Frequency Hcg Plus Date Menarche Onset Age Genetic Screening And Infection History Question Response Note Mental Retardation/Autism false Patient's Age Will Be 35 Years Or Older At Estim ated Date of Delivery false Thalassemia (Stateless, Congolese, Mediterranean, Or Background): MCV < 80 false Neural Tube Defect (Meningomyelocele, Spina Bifi da, Or Anencephaly) false Congenital Heart Defect false Down Syndrome false Dev-Sachs (eg, Advent, Cajun, English-[place]) f alse Ileana Disease false Sickle Cell Disease Or Trait () false Hemophilia Or Other Blood Disorders false Muscular Dystrophy false Cystic Fibrosis false Scurry's Chorea false Intellectual Disability/Autism false If Yes, Was Person Tested For Fragile X? false Other Inherited Genetic Or Chromosomal Disorder false Maternal Metabolic Disorder (eg, Type 1 Diabetes , PKU) false Patient Or Baby's Father Had A Child With Defects Not Listed Above false Recurrent Loss, Or A Stillbirth false Medications (including Suppl ements, Vitamins, Herbs, OTC Drugs), Illicit/Recreational Drugs, Alcohol false If Yes, Agent(s) And Strength/Dosage false Any Other Genetic History false Live With Someone With TB Or Exposed To TB false Patient Or Partner Has History Of Genital Herpes false Rash Or Viral Illness Since Last Menstrual Perio d false History Of STD, Gonorrhea, Chlamydia, HPV, Syphi lis false Other Infection History false History of HIV false History of Hepatitis false Prior GBS-infected child false Hemoglobinopathy Or Carrier false Other Structural Defect false Recent Travel History Outside of Country false Delivery Information Delivery Date Delivery Type Labor Anesthesia Weeks Gestation Incision Type Labor Labor Length Hrs Delivered By Post Complications Tubal Sterilization Discharge Date Comments Sponta neous Regional-Ep idural 38.5 Bouchra Valle CNM SROM, Anemia & IUGR Gbs+ Discharge Information Feeding Method Contraceptive Method Maternal HG B and HCT Levels Ob Episode Information Episode Created Date Number of Fetuses Patient Bloodtype Patient rh Status Prepregnancy Weight lbs Domestic Partner Domestic Partner Phone Father Name Industrial Custodian Status 10/01/19 22 1 CLOSED Fetus Data First Name Last Name Admitted to NICU Weight (g) Sex Living Outcome Pediatric Complications Fetus ID Race Codes Race Delivery Type , Spontane ous [id number] Jakob Calculation Initial Jakob Date Initial Exam Date Initial Exam Provider Initial Ultrasound Date Last Menstrual Period Date Ultra Sound Weeks Gestation 0 Eighteen To Twenty Week Jakob Update Ultra Sound Date Fundal Height At Umbil Quickening Date Ultra Sound Latest Weeks Gestation Final Jakob Confirmed By Final Jakob Confirmed Date Final Jakob Date Ultra Sound Latest Days Gestation 0 0 Menstrual History Last Menstrual Date Menses Monthly On Bcp Conception Prior Menses Frequency Hcg Plus Date Menarche Onset Age Delivery Information Delivery Date Delivery Type Labor Anesthesia Weeks Gestation Incision Type Labor Labor Length Hrs Delivered By Post Complications Tubal Sterilization Discharge Date Comments 2 Discharge Information Feeding Method Contraceptive Method Maternal HG B and HCT Levels Ob Episode Information Episode Created Date Number of Fetuses Patient Bloodtype Patient rh Status Prepregnancy Weight lbs Domestic Partner Domestic Partner Phone Father Name Industrial Custodian Status 11/28/19 22 1 O Positive 121 CLOSED Fetus Data First Name Last Name Admitted to NICU Weight (g) Sex Living Outcome Pediatric Complications Fetus ID Race Codes Race Delivery Type 3742.13 4 M true Full Term [id number] Vaginal Delivery Jakob Calculation Initial Jakob Date Initial Exam Date Initial Exam Provider Initial Ultrasound Date Last Menstrual Period Date Ultra Sound Weeks Gestation 04/21/2022 11/27/2021 09/30/2021 06/30/2021 11 Eighteen To Twenty Week Jakob Update Ultra Sound Date Fundal Height At Umbil Quickening Date Ultra Sound Latest Weeks Gestation Final Jakob Confirmed By Final Jakob Confirmed Date Final Jakob Date Ultra Sound Latest Days Gestation 0 [email or web address] 11/27/2021 04/21/20 22 0 Pre- Flowsheet Flowsheet Date 11/27/2021 Hernandez Score Blood Edema Fundus Height Fundus Units Glucose Ketones Leukocytes Nitrite Labor Signs Protein Cervic Dilation Cervic Effacement Cervic Station neg none none trace Type Weight in lbs Pre/Post Dialysis Refused Weight 125.046056227135 BP Diastolic BP Location Tested BP Systolic BP Type 68 116 Fetus Heart Rate Present A 144 Fetus Movement A Yes Comments patient states that having h eadaches, vision changes, and nausea. UDS +THC , reviewed precautions, ok to take 2 extra strength tylenol for MORRISON has not tried any OTC yet, no hx migraine, doing well, anatomy this afternoon Flowsheet Date 11/27/2021 Hernandez Score Blood Edema Fundus Height Fundus Units Glucose Ketones Leukocytes Nitrite Labor Signs Protein Cervic Dilation Cervic Effacement Cervic Station Type Weight in lbs Pre/Post Dialysis Refused BP Diastolic BP Location Tested BP Systolic BP Type Fetus Heart Rate Present A 154 Fetus Movement Comments anatomy scan later today, at anatomy scan pt c/o gush of fluid from vagina, CNM at bs, reviewd us and fluid wnl, no pooling on speculum exam, fern negative, pt given precautions Flowsheet Date 12/25/2021 Hernandez Score Blood Edema Fundus Height Fundus Units Glucose Ketones Leukocytes Nitrite Labor Signs Protein Cervic Dilation Cervic Effacement Cervic Station Type Weight in lbs Pre/Post Dialysis Refused BP Diastolic BP Location Tested BP Systolic BP Type Fetus Heart Rate Present Fetus Movement Comments Flowsheet Date 12/25/2021 Hernandez Score Blood Edema Fundus Height Fundus Units Glucose Ketones Leukocytes Nitrite Labor Signs Protein Cervic Dilation Cervic Effacement Cervic Station neg none none trace Type Weight in lbs Pre/Post Dialysis Refused Weight 126.14654164955 BP Diastolic BP Location Tested BP Systolic BP Type 74 112 Fetus Heart Rate Present Fetus Movement A Yes Comments patient states that having s ome discharge, contractions and swelling. efw 38% MCI, precautions reviewed, f/u 4 weeks with growth and plan GCT Flowsheet Date 01/21/2022 Hernandez Score Blood Edema Fundus Height Fundus Units Glucose Ketones Leukocytes Nitrite Labor Signs Protein Cervic Dilation Cervic Effacement Cervic Station Type Weight in lbs Pre/Post Dialysis Refused BP Diastolic BP Location Tested BP Systolic BP Type Fetus Heart Rate Present Fetus Movement Comments Flowsheet Date 01/21/2022 Hernandez Score Blood Edema Fundus Height Fundus Units Glucose Ketones Leukocytes Nitrite Labor Signs Protein Cervic Dilation Cervic Effacement Cervic Station 27 Type Weight in lbs Pre/Post Dialysis Refused Weight 134.531088658369 BP Diastolic BP Location Tested BP Systolic BP Type 75 R arm 119 sitting Fetus Heart Rate Present A 145 Fetus Movement Comments no complaints, no problems, glucose tolerance testing today. Flowsheet Date 02/04/2022 Hernandez Score Blood Edema Fundus Height Fundus Units Glucose Ketones Leukocytes Nitrite Labor Signs Protein Cervic Dilation Cervic Effacement Cervic Station 29 Type Weight in lbs Pre/Post Dialysis Refused Weight 142.742071266709 BP Diastolic BP Location Tested BP Systolic BP Type 77 R arm 126 sitting Fetus Heart Rate Present A 140 Fetus Movement A Yes Comments no problems, no complaints Flowsheet Date 02/19/2022 Hernandez Score Blood Edema Fundus Height Fundus Units Glucose Ketones Leukocytes Nitrite Labor Signs Protein Cervic Dilation Cervic Effacement Cervic Station 31 0cm 20% Type Weight in lbs Pre/Post Dialysis Refused Weight 146.034387941825 BP Diastolic BP Location Tested BP Systolic BP Type 78 R arm 118 sitting Fetus Heart Rate Present A 145 Fetus Movement Comments patient reports pressure, lo w back pain, give recommendation on 10 units, looked at her cervix, she has increased vaginal discharge that is mucousy. Cervix is open externally but closed internally. Patient to contact us with worsening lower pelvic symptoms. Flowsheet Date 03/04/2022 Hernandez Score Blood Edema Fundus Height Fundus Units Glucose Ketones Leukocytes Nitrite Labor Signs Protein Cervic Dilation Cervic Effacement Cervic Station 33 Type Weight in lbs Pre/Post Dialysis Refused Weight 148.021819165780 BP Diastolic BP Location Tested BP Systolic BP Type 67 R arm 104 sitting Fetus Heart Rate Present A 141 Fetus Movement Comments no problems, No complaints, Flowsheet Date 03/18/2022 Hernandez Score Blood Edema Fundus Height Fundus Units Glucose Ketones Leukocytes Nitrite Labor Signs Protein Cervic Dilation Cervic Effacement Cervic Station 32 Type Weight in lbs Pre/Post Dialysis Refused Weight 154.872024876144 BP Diastolic BP Location Tested BP Systolic BP Type 78 R arm 131 sitting Fetus Heart Rate Present A 145 Fetus Movement Comments Small for gestational age, u ltrasound for growth Flowsheet Date 03/23/2022 Hernandez Score Blood Edema Fundus Height Fundus Units Glucose Ketones Leukocytes Nitrite Labor Signs Protein Cervic Dilation Cervic Effacement Cervic Station Type Weight in lbs Pre/Post Dialysis Refused BP Diastolic BP Location Tested BP Systolic BP Type Fetus Heart Rate Present Fetus Movement Comments Flowsheet Date 03/23/2022 Hernandez Score Blood Edema Fundus Height Fundus Units Glucose Ketones Leukocytes Nitrite Labor Signs Protein Cervic Dilation Cervic Effacement Cervic Station neg none 38 none trace 2cm 70% Type Weight in lbs Pre/Post Dialysis Refused Weight 155.38178894032 BP Diastolic BP Location Tested BP Systolic BP Type 77 119 Fetus Heart Rate Present A 145 Fetus Movement A Yes Comments patient is contractions, dis charge, and swelling. Flowsheet Date 03/29/2022 Hernandez Score Blood Edema Fundus Height Fundus Units Glucose Ketones Leukocytes Nitrite Labor Signs Protein Cervic Dilation Cervic Effacement Cervic Station 37 Type Weight in lbs Pre/Post Dialysis Refused Weight 156.868313739024 BP Diastolic BP Location Tested BP Systolic BP Type 82 R arm 131 sitting Fetus Heart Rate Present A 145 Fetus Movement Comments No complaints, no problems, stable Flowsheet Date 04/06/2022 Hernandez Score Blood Edema Fundus Height Fundus Units Glucose Ketones Leukocytes Nitrite Labor Signs Protein Cervic Dilation Cervic Effacement Cervic Station neg none none trace 3cm 80% -2 Type Weight in lbs Pre/Post Dialysis Refused Weight 156.663936241312 BP Diastolic BP Location Tested BP Systolic BP Type 70 118 Fetus Heart Rate Present A 150 Fetus Movement A Yes Comments PT C/O NAUSEA AND VOMITING A ND CTX'S, excellent exam, to induce in 7 days. Menstrual History Last Menstrual Date Menses Monthly On Bcp Conception Prior Menses Frequency Hcg Plus Date Menarche Onset Age 0206/30/2021 Genetic Screening And Infection History Question Response Note Mental Retardation/Autism false Patient's Age Will Be 35 Years Or Older At Estim ated Date of Delivery false Thalassemia (Stateless, Congolese, Mediterranean, Or Background): MCV < 80 false Neural Tube Defect (Meningomyelocele, Spina Bifi da, Or Anencephaly) false Congenital Heart Defect false Down Syndrome false Dev-Sachs (eg, Advent, Cajun, English[place]) f alse Ileana Disease false Sickle Cell Disease Or Trait () false Hemophilia Or Other Blood Disorders false Muscular Dystrophy false Cystic Fibrosis false Yousif's Chorea false Intellectual Disability/Autism false If Yes, Was Person Tested For Fragile X? false Other Inherited Genetic Or Chromosomal Disorder false Maternal Metabolic Disorder (eg, Type 1 Diabetes , PKU) false Patient Or Baby's Father Had A Child With Defects Not Listed Above false Recurrent Loss, Or A Stillbirth false Medications (including Suppl ements, Vitamins, Herbs, OTC Drugs), Illicit/Recreational Drugs, Alcohol true pnv If Yes, Agent(s) And Strength/Dosage false Any Other Genetic History false Live With Someone With TB Or Exposed To TB false Patient Or Partner Has History Of Genital Herpes false Rash Or Viral Illness Since Last Menstrual Perio d false History Of STD, Gonorrhea, Chlamydia, HPV, Syphi lis false Other Infection History false History of HIV false History of Hepatitis false Prior GBS-infected child false Hemoglobinopathy Or Carrier false Other Structural Defect false Recent Travel History Outside of Country false Delivery Information Delivery Date Delivery Type Labor Anesthesia Weeks Gestation Incision Type Labor Labor Length Hrs Delivered By Post Complications Tubal Sterilization Discharge Date Comments 2 Induce d Regional-Ep idural 39 false Vasile Kendrick MD Gbs+ Discharge Information Feeding Method Contraceptive Method Maternal HG B and HCT Levels Breast Ob Episode Information Episode Created Date Number of Fetuses Patient Bloodtype Patient rh Status Prepregnancy Weight lbs Domestic Partner Domestic Partner Phone Father Name Industrial Custodian Status 05/24/19 25 1 O Positive OPEN Fetus Data First Name Last Name Admitted to NICU Weight (g) Sex Living Outcome Pediatric Complications Fetus ID Race Codes Race Delivery Type [id number] Problems Problem Notes Re: growth restriction . History of in 2nd pregnancyNL 06/21/24 Anataomy U/S. EFW 43% HC 13%. 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 [id number] + Carrier bab y low risk Anemia [id number] ana m quiroz infusions - order faxed [...] Weight in lbs Pre/Post Dialysis Refused Weight 123.199990794775 BP Diastolic BP Location Tested BP Systolic [...] Type Weight in lbs Pre/Post Dialysis Refused 128.408733388832 BP Diastolic BP Location Tested BP Systolic BP Type 74 L arm 112 sitting Fetus Heart Rate Present A 152 Fetus Movement A Yes Comments no complaints, no problems, routine care, no contractions, no vaginal bleeding, no loss of fluid, no cramping Flowsheet Date 07/19/2024 Hernanedz Score Blood Edema Fundus Height Fundus Units Glucose Ketones Leukocytes Nitrite Labor Signs Protein Cervic Dilation Cervic Effacement Cervic Station Type Weight in lbs Pre/Post Dialysis Refused Weight 139.41983497242 BP Diastolic BP Location Tested BP Systolic [...] Type Weight in lbs Pre/Post Dialysis Refused 139.593449793706 BP Diastolic BP Location Tested BP Systolic [...] Weight in lbs Pre/Post Dialysis Refused Weight 142.008378218888 BP Diastolic BP Location Tested BP Systolic [...] Weight in lbs Pre/Post Dialysis Refused Weight 141.466997321434 BP Diastolic BP Location Tested BP Systolic [...] Weight in lbs Pre/Post Dialysis Refused Weight 143.004048080855 BP Diastolic BP Location Tested BP Systolic [...]
== END 2024-10-31 22:15 | disposition home or self-care (01) ==
LOC: ANHOBOP 22:07 → ANHLDR 22:15
PROVIDERS: Visit Provider Obstetrics & Gynecology
DX: Z34.90 Encounter for supervision of normal pregnancy, unspecified, unspecified trimester (principal); Z3A.00 Weeks of gestation of pregnancy not specified
CPT/HCPCS: 99199

== ENCOUNTER 2024-11-01 11:15 | Inpatient (IN) | payer OTHER, SELFPAY ==
[2024-11-01] VITALS (90 sets, daily range): BP systolic 96–167; BP diastolic 49–143; PULSE 71–163; TEMP 36.5–36.8; O2SAT 92–100; BMI 22.4
[2024-11-01 12:09] LABS: Basophils Absolute Auto 0.1 K/mm3 (0.0-0.1); Basophils Percent Auto 0.4 % (0.2-1.2); Eosinophils Percent Auto 0.3 % (0-4.4); Hematocrit 29.9 % (37.0-47.0); Hemoglobin 9.5 g/dL (12.0-15.0); Immature Granulocyte Absolute 0.17 K/mm3 (0.00-0.031); Immature Granulocyte Percent A 1.5 % (0-0.5); Lymphocytes Absolute Auto 1.63 K/mm3 (0.9-3.2); Lymphocytes Percent Auto 14.4 % (18.3-44.2); Mean Corpuscular HGB Conc 31.8 g/dl (32-36); Mean Corpuscular Hemoglobin 23.4 pg (26-34); Mean Corpuscular Volume 73.6 fl (80-100); Mean Platelet Volume 10.8 fl (7.4-10.4); Monocytes Absolute Auto 0.7 K/mm3 (0.1-0.6); Neutrophils Absolute Auto 8.8 K/mm3 (1.3-6.7); Neutrophils Percent Auto 77.4 % (45.5-73.1); Nucleated Red Blood Cells Perc 0.4 % (0.0-0.2); Platelet Count Result 266 k/mm3 (150-375); Red Blood Count 4.06 M/mm3 (4.2-5.4); Red Cell Distribution Width 16.3 % (11.5-14.5); White Blood Count 11.3 K/mm3 (4.5-10.0)
[2024-11-01] MEDS: OXYTOCIN 30 UNITS/NS 500 ML 30 UNITS/500 ML BAG IV CONT (12:13)
[2024-11-01] MEDS: LACTATED RINGERS 1,000 ML 125 ML IV CONT ×2 (12:14→15:33)
[2024-11-01 12:33] LABS: Anisocytosis 1+; Ovalocytes 1+; Platelet Estimate Adequate (Adequate); Schistocytes None Seen; Tear Drop Cells 1+
--- NOTE | 2024-11-01 12:33 | LDADM ---
This patient, Topher Greene, was admitted to Labor/Delivery/Recovery 104 on 11/01/24 at 11:15. Plans for labor, pain management and were discussed with patient. Patient/family oriented to hospital policies and general routines including ID bracelet, bed and alarms, visiting hours, pain management, procedures, bathroom and other care routines, personal items, smoking policy, room service/diet and guest tray routines, security routines, and visiting hours. Patient/Family are encouraged to report perceived risks to care and to ask questions if they do not understand what they are told or what they should do. See OBIX for further documentation.
[2024-11-01 12:50] LABS: Syphilis IgG/IgM Antibody Non-Reactive (Nonreactive)
--- NOTE | 2024-11-01 15:12 | WPDHPUPDATE1 ---
History and Physical Update Update Date/Time: 11/01/24 15:12 24-year-old multiparous female at term who presents for elective induction of labor. Artificial rupture was completed-clear fluid. 3-4 cm/80%/-2. Reassuring status. Active management of labor with Pitocin. History and Physical has been reviewed, including an updated exam of the patient. There are NO changes in the patient's condition. Risks, benefits, and alternatives have been discussed and questions answered. Patient agrees to proceed with procedure.
--- NOTE | 2024-11-01 16:00 | WPDANESEPPF ---
Anes - Initial Pre Proc Eval Procedure: labor epidural Date/Time: 11/01/24 16:00 Surgeon: Vasile Kendrick MD Pre Op Diagnosis: labor pain Pre Op Diagnosis: IOL Patient Data Age: 24 Gender: F Height: 1.7 m Weight: 65 kg Last Vital Signs Temp 36.6 C 11/01/24 13:00 Pulse 97 11/01/24 15:59 BP 109/74 11/01/24 15:59 Pulse Ox 100 11/01/24 15:55 O2 Del Method Room Air 11/01/24 12:32 Allergies Allergy/AdvReac Type Severity Reaction Status Date / Time No Known Allergies Allergy Verified 10/24/24 09:38 Home Medications ?Medication ?Instructions ?Recorded ?Confirmed ?Type vit no.95-ferrous 1 tablet PO DAILY 09/10/24 11/01/24 History fumarate 28 mg-folic acid 800 mcg tablet ( Multivitamins) ferrous sulfate 325 mg (65 mg 325 mg PO DAILY 10/24/24 11/01/24 History iron) tablet (Feosol) Laboratory Tests 11/01/24 11:46 WBC 11.3 H K/mm3 (4.5-10.0) RBC 4.06 L M/mm3 (4.2-5.4) Hgb 9.5 L g/dL (12.0-15.0) Hct 29.9 L % (37.0-47.0) MCV 73.6 L fl (80-100) MCH 23.4 L pg (26-34) MCHC 31.8 L g/dl (32-36) RDW 16.3 H % (11.5-14.5) Plt Count 266 k/mm3 (150-375) MPV 10.8 H fl (7.4-10.4) Immature Gran % (Auto) 1.5 H % (0-0.5) Neut % (Auto) 77.4 H % (45.5-73.1) Lymph % (Auto) 14.4 L % (18.3-44.2) [place] % (Auto) 6.0 % (2.6-8.5) Eos % (Auto) 0.3 % (0-4.4) Baso % (Auto) 0.4 % (0.2-1.2) Lymph # (Auto) 1.63 K/mm3 (0.9-3.2) [place] # (Auto) 0.7 H K/mm3 (0.1-0.6) Eos # (Auto) 0.0 K/mm3 (0-0.3) Baso # (Auto) 0.1 K/mm3 (0.0-0.1) Abs Immat Gran (auto) 0.17 H K/mm3 (0.00-0.031) Absolute Neuts (auto) 8.8 H K/mm3 (1.3-6.7) Absolute Nucleated RBC 0.040 H K/mm3 (0.0-0.012) Band Neutrophils % Not Reportable Nucleated RBC % 0.4 H % (0.0-0.2) Platelet Estimate Adequate (Adequate) Anisocytosis 1+ Tear Drop Cells 1+ Ovalocytes 1+ Schistocytes None seen Syphilis IgG/IgM Ab Non-reactive (Nonreactive) Blood Type O Positive Antibody Screen Negative Patient hx anesthesia problems: none Family hx anesthesia problems: none Results Review: All pre-operative results and documents have been reviewed as part of the pre-operative evaluation. PMFSH Family History Family History Mother Hypertension Thyroid disease Sibling Thyroid disease Social History Social History Smoking status: Never smoker Second hand tobacco smoke exposure: No Substance use: never Do You Feel Safe in your Home?: Yes Lack of Transportation: No Lack of Food: Never True Current Housing: I Have Housing Concerned About Future Housing: No Difficulty Paying Gas/Electric Bills: No Difficulty Paying for Meds: No Currently Unemployed: No Education: High School Diploma/GED Difficulty w/ Childcare or Family Care: No Gender identity (if verbalized by the patient): Female Spiritual care concerns: No Anes - Eval Final PreProcedure Day of Procedure 11/01/24 16:00 Patient weight: normal ASA classification: II Anesthetic plan: proceed Anesthesia type and monitoring: regional epidural and standard monitoring Results Review: All pre-operative results and documents have been reviewed as part of the pre-operative evaluation. Informed Consent: The patient's anesthetic plan and its attendant risks and benefits were discussed with the patient/family/POA. Questions were solicited and answers provided to the satisfaction of the patient/family/POA.
[2024-11-01] MEDS: SODIUM CHLORIDE 0.9% IV 300 ML 600 ML I-UTERINE (21:00)
--- NOTE | 2024-11-01 22:05 | PM.OBPRVD ---
OB - Vaginal Delivery Note Procedure Delivery date: 11/01/24 Induction method: AROM and Per Pitocin Protocol Delivery monitor: External FHT and Internal Uterine Route of delivery: Episiotomy description: None Laceration Description: None Specimen: No Quantitative Blood Loss (ml): 75 Anesthesia type: Epidural Disposition: Floor Complications: No immediate complications
[2024-11-01] MEDS: OXYTOCIN 30 UNITS/NS 500 ML 30 UNITS/500 ML BAG 125 UNITS IV CONT (22:33)
[2024-11-01] MEDS: BENZOCAINE 20% AER SPR (*SP) 56 GM CAN 1 SPRAY TOPICAL (23:13)
[2024-11-01] MEDS: WITCH HAZEL 40 PADS 1 PAD TOPICAL (23:13)
[2024-11-02] VITALS (11 sets, daily range): BP systolic 111–121; BP diastolic 63–74; PULSE 65–87; RESP 14–16; TEMP 36.3–37.1; O2SAT 94–99
[2024-11-02] MEDS: ACETAMINOPHEN 325 MG TABLET 650 MG PO ×2 (00:46→13:58)
--- NOTE | 2024-11-02 06:38 | PC.NURSE ---
Report given to Nisha Cornelius RN
[2024-11-02 06:50] LABS: Hematocrit 29.4 % (37.0-47.0); Hemoglobin 9.2 g/dL (12.0-15.0)
[2024-11-02] MEDS: IBUPROFEN 600 MG TABLET PO (08:08)
[2024-11-02] MEDS: MULTIVIT/MIN/PREN/FOL AC/IRON TABLET 1 TAB PO (08:09)
[2024-11-02] MEDS: POLYSACCHARIDE IRON COMPLEX 150 MG CAPSULE PO ×2 (08:09→17:18)
--- NOTE | 2024-11-02 12:33 | PC.NURSE ---
This patient, Topher Greene, was received from room 111 on 11/02/24 at 1233.. Patient/family oriented to unit policies and routines.
--- NOTE | 2024-11-02 13:10 | P.PNOB_ITS ---
OB - PN: Subj Subjective Date/time seen: 11/02/24 13:10 Patient comments: no complaints, pain well controlled, incisional pain, tolerating diet and flatus present OB - PN: Obj Data Labs 11/02/24 06:44 Labs: Laboratory Results - last 24 hr 11/02/24 06:44 Hgb 9.2 L Hct 29.4 L OB - PN A/P Plan day: 1 Plan: routine care Comments: No problems, routine care Time Spent With Patient Time: Total time spent is greater than 50% in coordination of care (as documented) at patient's floor/unit and/or counseling patient: Exam 2 Const: General: comfortable, no acute distress and alert Resp: Effort & Inspection: normal respiratory effort Auscultation: no crackles, no rales and no rhonchi Cardio: Rate: regular rate Heart sounds: no click, no murmurs and no rubs GI: Inspection: non-distended GI Palp: No Tenderness to palpation present (GI) Auscultation: normal bowel sounds Other: Incision - CDI Extrem: General: normal to inspection, no pedal edema and no calf tenderness
[2024-11-02] MEDS: DOCUSATE SODIUM 100 MG CAPSULE PO (17:18)
[2024-11-03] MEDS: ACETAMINOPHEN 325 MG TABLET 650 MG PO (04:35)
[2024-11-03 07:43] VITALS: BP 123/74; PULSE 71; RESP 18; TEMP 36.6; O2SAT 99
[2024-11-03] MEDS: POLYSACCHARIDE IRON COMPLEX 150 MG CAPSULE PO (08:08)
[2024-11-03] MEDS: DOCUSATE SODIUM 100 MG CAPSULE PO (08:08)
[2024-11-03] MEDS: MULTIVIT/MIN/PREN/FOL AC/IRON TABLET 1 TAB PO (08:08)
--- NOTE | 2024-11-03 09:44 | P.PNOB_ITS ---
OB - PN: Subj Subjective Date/time seen: 11/03/24 09:44 Interval history: pp day 2 doing well plans d/c home OB - PN: Obj Data Labs 11/02/24 06:44 OB - PN A/P Plan day: 2 Plan: routine care and discharge home Time Spent With Patient Time: Total time spent is greater than 50% in coordination of care (as documented) at patient's floor/unit and/or counseling patient: Review of Systems 2 Review of Systems: All systems reviewed & are unremarkable except as noted in HPI and below Exam 2 Const: General: cooperative, healthy appearing and comfortable Chest: Chest palpation & inspection: normal inspection of the chest Resp: Effort & Inspection: normal respiratory effort Cardio: Rate: regular rate Back/Spine/Pelvis: Back: no CVA tenderness Skin: General skin exam: normal color
--- NOTE | 2024-11-03 09:47 | PM.OBDSVD ---
DS: Admitting Diagnosis Discharge Date 11/03/24 Admitting Diagnosis IOL DS: Discharge Diagnosis Discharge Diagnosis (1) Term delivered: Code(s): O80 - Encounter for full-term uncomplicated delivery Status: Acute OB - DS: Summary OB Procedures : None OB Procedures Intrapartum: Spontaneous Vag Delivery OB Procedures: : None Peripartum Data Laceration Description: None Episiotomy description: None Time Spent with Patient Time attestation: Total time spent providing and/or coordinating discharge services: Discharge Plan Discharge Attending physician on discharge: Vasile Kendrick Discharging Clinician: Bouchra Chan Patient Disposition: Home Activity: pelvic rest Diet: regular Patient Instructions: Antibiotic Form Patient Language: Turkish Stand Alone Forms: General Discharge Information Follow-up/Referrals: Vasile Kendrick MD [Physician] - 4 Weeks Discharge Medications: Continued PNV [id number]-ferrous fumarate-FA [ Multivitamins] 28 mg iron- 800 mcg tablet 1 tablet PO DAILY ferrous sulfate [Feosol] 325 mg (65 mg iron) tablet 325 mg PO DAILY Date of admission: 11/01/24 11:15 Primary Care Provider: UNKNOWN,DOCTOR Admitting Provider: Vasile Kendrick Attending physician on admission: Vasile Kendrick Condition: Stable
[2024-11-03] MEDS: IBUPROFEN 600 MG TABLET PO (13:07)
== END 2024-11-03 14:50 | disposition home or self-care (01) | DRG 560 ==
LOC: ANHLDR 11:19 → ANHOBPP 11-02 00:37 → ANHOB2 11-02 12:40
PROVIDERS: Admitting Provider Obstetrics & Gynecology; Visit Provider Advanced Practice Midwife
DX: O80 Encounter for full-term uncomplicated delivery (principal); Z3A.39 39 weeks gestation of pregnancy; Z37.0 Single live birth
CPT/HCPCS: 36415; 85014; 85018; 85025; 86593; 86850; 86900; 86901; A9270; J2590; J2795; J7030; J7120